=== PATIENT | male | born 1995 | race Caucasian/White ===

== ENCOUNTER 2022-09-12 21:45 | Emergency (ER) | payer OTHER, SELFPAY ==
[2022-09-12 21:46] VITALS: BP 118/89; PULSE 61; RESP 16; TEMP 36.7; O2SAT 96; BMI 27.2
--- NOTE | 2022-09-12 22:06 | EDS_ITS ---
HPI HPI - URI History of Present Illness Chief Complaint: Cough Informant: patient Onset/Context/Timing Onset: Days Context: Gradual Onset Timing: Continuous Current Severity: Mild Associated Symptoms Associated Symptoms: Positive for Nasal Congestion and Nonproductive cough Narrative Narrative: 27-year-old male 5-day history of URI symptoms. Nonproductive cough. No hemoptysis. No chest pain. Denies nausea vomiting diarrhea. No fever or chills. Presently worse today. With shortness of breath and wheezing. Patient is a non-smoker. Denies any leg pain or swelling. Prior similar symptoms: Yes Recent Illness/Hospitalization: No ROS ROS ED ROS Narrative Cough. Shortness of breath. Wheezing. Review of Systems ROS Unobtainable: Denies due to encephalopathy Constitutional Constitutional ED: Denies chills or fever(s) Eyes Eyes: Denies blurry vision ENT ENT ED: Denies ear pain Cardiovascular Cardiovascular: Denies chest pain, orthopnea or paroxysmal nocturnal dyspnea Respiratory/Chest Respiratory/Chest: Reports cough and dyspnea; Denies dyspnea on exertion, orthopnea, paroxysmal nocturnal dyspnea or sputum Gastrointestinal Gastrointestinal: Denies abdominal pain, constipation, diarrhea, melena, nausea or vomiting Genitourinary Genitourinary ED: Denies dysuria or hematuria Musculoskeletal Musculoskeletal: Denies arthralgias Integumentary Denies abscess Neurologic Neurologic: Denies headache(s) Psychiatric Psychiatric: Denies anxiety Endocrine Endocrinology: Denies cold intolerance Hematologic/Lymphatic Hematologic/Lymphatic: Denies easy bleeding Allergic/Immunologic Allergic/Immunologic ED: Denies mouth swelling or tongue swelling PFSH PFSH Medical History Cough no medical history Home Medications prednisone 20 mg tablet 40 mg PO DAILY 7 days #14 tabs 09/12/22 [Rx Last Taken Unknown] Allergy/AdvReac Type Severity Reaction Status Date / Time No Known Allergies Allergy Verified 09/12/22 21:47 Surgical History no surgical history no surgical history Social History Smoking Status: Unknown if ever smoked EXAM Physical Exam Narrative Exam Narrative: 18-year-old male vital signs stable afebrile. Pulse ox 96% on room air no hypoxia. No distress. H EENT exam unremarkable. Except he does have mild laryngitis. Nasal congestion. Posterior pharynx unremarkable. Neck nontender. No lymphadenopathy. No meningismus. Lungs dry cough. Diffuse scattered expiratory wheezes. No rales or rhonchi. Equal symmetrical. Abdomen soft nontender. Moving all 4 extremities. Calves are nontender no edema no cords. Neurologically is awake alert with no focal motor deficits. Const Vital Signs: 09/12/22 21:46 09/12/22 22:03 09/12/22 22:26 Temperature 98.1 F Temperature Source Temporal Pulse Rate 61 68 Respiratory Rate 16 16 Respiratory Effort Normal Non-Labored Respiratory Depth Normal Respiratory Pattern Normal Blood Pressure 118/89 H Blood Pressure Mean 98 Pulse Ox 96 Oxygen Delivery Method Room Air Positive well nourished and well developed; Negative for obese, cachectic or contractures General Appearance ED: well developed and NAD; Negative for cachectic, contractures, cyanotic, diaphoretic or pallor Nutritional Appearance: Negative for cachectic or obese HEENT Reports moist mucous membranes; Denies dry mucous membranes normocephalic and atraumatic; Negative for scalp tenderness Face and Sinus: Negative for sinus tenderness Mouth ED: No dry mucous membranes Mouth: No dry mucous membranes Teeth and Gingiva: Negative for caries Throat: posterior oropharynx normal; Negative for tonsils abnormal or posterior oropharynx abnormal Eyes PERRL and EOMs intact bilaterally General Eye ED: Negative for pale conjunctiva or scleral icterus Neck no lymphadenopathy, supple, no meningeal signs and no JVD General: Negative for anterior neck swelling or lymphadenopathy Resp normal respiratory effort and No clear to auscultation bilaterally Effort and Inspection: Negative for retractions Auscultation: wheezes; Negative for rales or rhonchi Cardio S1 normal heart sound, S2 normal heart sound and no murmurs Rate: regular rate Rhythm: regular rhythm GI non-tender, non-distended and no masses Inspection: Negative for abdominal distention Auscultation: normoactive bowel sounds Palpation: soft; Negative for tender or guarding Back/Spine no CVA tenderness and normal ROM General Back: Negative for CVA tenderness Cervical Spine: Negative for cervical spine tenderness Thoracic Spine / Upper Back: Negative for thoracic spinal tenderness Lumbar Spine / Lower Back: Negative for lumbar spinal tenderness Sacrum: Negative for tenderness Extremity normal to inspection and full ROM General Extremety ED: Negative for cyanosis or tenderness General Extremity: Negative for cyanosis Neuro oriented x3, CN's II-XII intact bilaterally and no sensory deficits noted Sensorium / Orientation: alert, oriented to person, oriented to place and oriented to time; Negative for orientation impaired, lethargic or stuporous Motor Exam: strength 5/5 throughout Psych mental status grossly normal Appearance: Negative for other Attitude: No agitated Mood & Affect: Negative for depressed, anxious or tearful Skin General Skin Exam: Negative for jaundice or pallor Lesions: no lesions Rashes: no rashes Trauma: Negative for abrasion or laceration MDM MDM MDM Narrative Medical decision making narrative: 27-year-old male with viral syndrome. Most likely influenza, COVID or any other respiratory virus. Chest x-ray will be obtained to rule out pneumonia even though clinically I do not think he has pneumonia. He will be given a DuoNeb aerosol for his wheezing and a dose of prednisone 60 mg. Patient is self-pay and wanted to be cost conscious. So he had to cancel his chest x-ray and his COVID and influenza test which I am fine with. Reviewed and patient is doing well at 10:44 PM. Wheezing is resolved. Breathing is improved after his aerosol and prednisone. He will be discharged home with a prescription of prednisone 40 mg a day for the next 7 days as needed. Follow-up if not improving. Return if worse. Lab Data Lab results narrative: Patient did not want any lab work or swabs. Radiography Diagnostic Testing: Patient deferred chest x-ray. Discharge Plan Triage Chief Complaint: Cough ED Provider: Rene James Dx/Rx/DC Orders Clinical Impression: Viral URI Instructions: ED URI, Viral W/ Wheezing (Adult) Prescriptions: New prednisone 20 mg tablet 40 mg PO DAILY 7 Days Qty: 14 0RF Primary Care Provider: Care Physician,No Primary Referrals: Kareem Beauchamp MD [Med Staff - Building And Grounds Supervisor] - 1 Week if not improving Care Physician,No Primary [Primary Care Provider] - Activity Restrictions/Additional Instructions: Plenty of fluids and rest. Tylenol and Motrin as needed if you have a fever. Daily prednisone to help you with the inflammation in your lungs and the wheezing. If you stop wheezing or feeling better you may stop it early. 40 mg once a day till gone or improved. Follow-up with your doctor if not improving. Disposition Disposition: Home, Self Care
[2022-09-12] MEDS: Ipratropium/Albuterol Sulfate 3 ML AMPUL.NEB INHALATION (22:12)
[2022-09-12 22:26] VITALS: PULSE 68; RESP 16
[2022-09-12] MEDS: predniSONE 20 MG Tablet 60 MG PO (22:31)
== END 2022-09-12 22:50 | disposition home or self-care (01) ==
PROVIDERS: Emergency Provider Emergency Medicine; Visit Provider Emergency Medicine
DX: J06.9 Acute upper respiratory infection, unspecified (principal); B34.9 Viral infection, unspecified; R06.02 Shortness of breath
CPT/HCPCS: 94640; 99283

== ENCOUNTER 2023-05-08 19:05 | Inpatient (IN) | payer BC, SELFPAY ==
[2023-05-08 19:07] VITALS: BP 122/94; PULSE 113; RESP 18; TEMP 36.8; O2SAT 98
[2023-05-08 19:12] VITALS: BP 122/94; PULSE 113; RESP 18; TEMP 36.8; O2SAT 98
--- NOTE | 2023-05-08 19:32 | RAD_ITS ---
INDICATION: pain, numb RLE EXAMINATION/TECHNIQUE: X-RAY - XR Spine Lumbar 2 or 3 Views COMPARISON: None. FINDINGS: This patient has 5 non rib-bearing lumbar-type vertebral bodies. Lumbar spine intervertebral disc height overall appears to be relatively preserved. There is some slight lower lumbar spine facet arthropathy at L5/S1 and L4/L5. Minimal anterior osteophyte formation at L5. Slight lower thoracic spine and spondylosis at T11 and T12. Slight loss of vertebral body height is present at T12 although this could be chronic. Nonspecific bowel gas pattern. RAD/Lumbar Spine 2 or 3 Views IMPRESSION: No evidence of acute lumbar spinal fracture or spondylolisthesis. Loss of height at T12 may be chronic. Electronically Signed: Elvis Frazier MD at 20:25 EDT ,
[2023-05-08 19:48] VITALS: BMI 26.9
[2023-05-08 20:02] LABS: Absolute Lymphocyte Count 0.93 X10^3/uL (0.83-4.51); Basophil# 0.03 X10^3/uL; Basophil% 0.2 % (0-1); Hematocrit 43.6 % (40-54); Hemoglobin 15.1 g/dL (13.0-16.5); Lymphocyte # 0.93 X10^3/ul (0.83-4.51); Mean Corp Hgb Conc 34.6 g/dL (32-36); Mean Corpuscular Hgb 35.3 pg (27.0-32.0); Mean Corpuscular Volume 101.9 fL (80-94); Mean Platelet Vol. 9.8 fl (6.2-12.0); Monocyte# 0.41 X10^3/uL; Monocyte% 2.7 % (0-10); NRBC Flagged by Analyzer 0 % (0-5); Neutrophil % 90.6 % (47-70); Platelet Count 200 K/mm3 (150-450); RBC Distribution Width CV 12.9 % (11.6-14.6); RBC Distribution Width SD 48.5 fl (35.1-43.9); Red Blood Count 4.28 M/mm3 (4.6-6.2); White Blood Count 15.4 K/mm3 (4.4-11.0)
--- NOTE | 2023-05-08 20:10 | RAD_ITS ---
INDICATION: pain EXAMINATION/TECHNIQUE: X-RAY - RIGHT XR Hip Unilateral with Pelvis when performed; 2-3 Views 3 VIEWS COMPARISON: None. FINDINGS: SI joints are grossly intact. Right hip joint space is intact. Tiny corticated density at the right superolateral acetabulum could be degenerative or reflect old trauma. No focal aggressive osseous lesion is appreciated. Pubic symphysis is normal. Left hip normal. Slight lower lumbar spine facet arthropathy. RAD/HIP, UNI W/ Pelvis 2-3 Views IMPRESSION: No acute osseous pathology. Electronically Signed: Elvis Frazier MD at 20:27 EDT ,
[2023-05-08 20:12] LABS: Erythrocyte Sedimentation Rate < 1 mm/hr (0-20)
[2023-05-08 21:26] LABS: Lactic Acid 3.2 mmol/L (0.4-1.9)
[2023-05-08 21:37] VITALS: BP 127/99; PULSE 63; RESP 16; O2SAT 96
[2023-05-08] MEDS: 0.9% Normal Saline (1000mL) 1,000 ML 999 ML IV (21:44)
[2023-05-08 22:04] LABS: Anion Gap 10 (5-15); BUN 34 mg/dL (7-18); BUN/Creat Ratio 16.7 RATIO (10-20); CPK Total, Creatine Kinase 22555 U/L (39-308); Calcium,Total 8.1 mg/dL (8.5-10.1); Chloride 107 mmol/L (98-107); Creatinine, Serum 2.04 mg/dL (0.70-1.30); EST Glomerular Filtration Rate 41 mL/min (>60); Est Glom Filt Rate - Afr Amer 50 mL/min (>60); Estimated Creatinine Clearance 54.67 ml/min; Glucose 135 mg/dL (74-106); Potassium 4.2 mmol/L (3.5-5.1); Sodium Level 138 mmol/L (136-145)
--- NOTE | 2023-05-08 22:09 | EDS_ITS ---
HPI History of Present Illness Chief Complaint: Numb/Ting Informant: patient Onset/Context/Timing Onset: Today Location: BLEs Current Severity: Severe Maximum Severity: Severe Associated Symptoms Associated Symptoms: pain and paresthesias Narrative Narrative: Patient has a history of opioid abuse and went through detox in early March. He said he is not using. He woke up today around 10 AM with bilateral leg pain as well as paresthesias in the right leg. He says the paresthesias run down his entire right leg. His pain is mainly in his bilateral thighs and also his left lower leg. He never had anything like this before. He is denying any back pain, incontinence, retention, saddle anesthesias, recent trauma, history of spinal tumors, fevers, blood thinners, or any other symptoms. He does report playing golf and doing yoga recently but denies any other repetitive or exertional activities. Denies any history of DVT or PE. Denies any history of radiculopathy or nerve problems. Denies any history of aortic or vascular disease. Prior similar symptoms: No Recent Illness/Hospitalization: No [facility] Medical History Cough Home Medications prednisone 20 mg tablet 40 mg (2 x 20 mg) PO DAILY 7 days #14 tabs 09/12/22 [Rx Last Taken Unknown] clonazepam 1 mg tablet 1 mg PO PRN sleep 05/08/23 [History Last Taken Unknown] naltrexone .ROUTE 05/08/23 [History Last Taken Unknown] Allergy/AdvReac Type Severity Reaction Status Date / Time No Known Allergies Allergy Verified 05/08/23 19:13 Social History Smoking Status: Current some day smoker tobacco type: cigarettes ROS ROS ED Constitutional Constitutional ED: Denies chills or fever(s) Eyes Eyes: Denies blurry vision ENT ENT ED: Denies ear pain Cardiovascular Cardiovascular: Denies chest pain Respiratory/Chest Respiratory/Chest: Denies dyspnea Gastrointestinal Gastrointestinal: Denies abdominal pain, diarrhea, nausea or vomiting Genitourinary Genitourinary ED: Denies dysuria or hematuria Musculoskeletal Musculoskeletal: Reports myalgias; Denies arthralgias, back pain or neck pain Integumentary Denies abscess or Abrasions Neurologic Neurologic: Reports paresthesias; Denies headache(s) or weakness Psychiatric Psychiatric: Denies anxiety Endocrine Endocrinology: Denies cold intolerance Allergic/Immunologic Allergic/Immunologic ED: Denies mouth swelling EXAM Physical Exam Const Vital Signs: 05/08/23 19:07 05/08/23 19:12 05/08/23 21:37 Temperature 98.2 F 98.2 F Temperature Source Temporal Temporal Pulse Rate 113 H 113 H 63 Respiratory Rate 18 18 16 Blood Pressure 122/94 H 122/94 H 127/99 H Blood Pressure Mean 103 103 108 Pulse Ox 98 98 96 Oxygen Delivery Method Room Air Room Air Room Air Positive well nourished and well developed General Appearance ED: well developed HEENT Reports moist mucous membranes Eyes EOMs intact bilaterally Resp normal respiratory effort Cardio regular rate and regular rhythm GI normal to inspection, nondistended, normoactive bowel sounds, non-tender and non-distended Back/Spine no CVA tenderness Thoracic Spine / Upper Back: Negative for paraspinal muscle tenderness Lumbar Spine / Lower Back: Negative for lumbar spinal tenderness Extremity normal to inspection Extremity Narrative: Strong equal DP pulses. Normal capillary refill. Tenderness to palpation to the bilateral anterior legs and the left lower leg General Extremety ED: Yes tenderness; Negative for edema General Extremity: Negative for edema Neuro oriented x3 Neuro Narrative: Symmetric strength. Paresthesias to the right lower extremity Sensorium / Orientation: alert Motor Exam: strength 5/5 throughout Psych mental status grossly normal Mood & Affect: Negative for depressed, anxious or tearful Skin no rashes or lesions noted, no wounds and skin turgor normal MDM MDM MDM Narrative Medical decision making narrative: Patient had x-rays of his lumbar spine and pelvis and right hip, where he seemed to have most of his pain (R thigh). These were reviewed by the radiologist and myself and he had no acute abnormalities. White count was 15. He was afebrile and had no other infectious symptoms. His CPK was 22,000 and he was treated with fluids. Lactate 3.2. Creatinine 2.0. ESR elevated. Still awaiting some of his blood work to come back. I added on a tox and alcohol, but results are pending at this time. Patient did not have the classic history or findings of cauda equina, and so I did not feel that he needed an emergent MRI. Abscess or bleed would be unlikely based on his exam and history, but they were considered. I am more concerned that he may have used again and had some narcosis and developed rhabdo. He does not appear to have compartment syndrome on exam. I spoke with the hospitalist and we will check CTA's. I did notify him of the elevated creatinine, and he will proceed with CTA's and the hospitalist will manage. If he develops back pain or objective neurologic symptoms, he may need further spinal imaging. Patient will be admitted to the hospital for further care. Impression #1 rhabdomyolysis Impression #2 leukocytosis Impression #3 lactic acidosis Impression #4 acute kidney injury Impression #5 history of opioid abuse Lab Data Labs: Laboratory Results - last 24 hr 05/08/23 05/08/23 05/08/23 19:56 20:33 21:45 WBC 15.4 H RBC 4.28 L Hgb 15.1 Hct 43.6 MCV 101.9 H MCH 35.3 H MCHC 34.6 RDW Std Deviation 48.5 H RDW Coeff of Ernesto 12.9 Plt Count 200 MPV 9.8 Immature Gran % (Auto) 0.500 Neut % (Auto) 90.6 H Lymph % (Auto) 6.0 L [place] % (Auto) 2.7 Eos % (Auto) 0.0 Baso % (Auto) 0.2 Absolute Neuts (auto) 14.0 H Absolute Lymphs (auto) 0.93 Nucleated RBC % 0 ESR < 1 Sodium 138 Potassium 4.2 Chloride 107 Carbon Dioxide 21.0 Anion Gap 10 BUN 34 H Creatinine 2.04 H Estim Creat Clear Calc 54.67 Est GFR (MDRD) Af Amer 50 L Est GFR (MDRD) Non-Af 41 L BUN/Creatinine Ratio 16.7 Glucose 135 H Lactic Acid 3.2 H* Calcium 8.1 L Total Creatine Kinase 42222 H C-React Prot Ext Range 32.90 H Ur Drug Screen Comment Radiography Diagnostic Testing: Clinical Impression(s) from Imaging Studies Lumbar Spine X-Ray 05/08/23 19:32 IMPRESSION: No evidence of acute lumbar spinal fracture or spondylolisthesis. Loss of height at T12 may be chronic. Electronically Signed: Elvis Frazier MD at 20:25 EDT , Hip/Pelvis X-Ray 05/08/23 20:10 IMPRESSION: No acute osseous pathology. Electronically Signed: Elvis Frazier MD at 20:27 EDT , Discharge Plan Triage Chief Complaint: Numb/Ting ED Provider: Pedro Engel Dx/Rx/DC Orders Prescriptions: No Action prednisone 20 mg tablet 40 mg PO DAILY 7 Days Qty: 14 0RF clonazepam 1 mg tablet 1 mg PO PRN (Reason: sleep) Patient Comments: TAKE 1 TABLET BY MOUTH TWICE DAILY NEEDED naltrexone .ROUTE Primary Care Provider: Care Physician,No Primary Referrals: Care Physician,No Primary [Primary Care Provider] -
--- NOTE | 2023-05-08 22:13 | HP.PCM.HOS_ITS ---
HPI - General General Date of Admission: 05/08/23 Date of Service: 05/08/23 Chief Complaint: Bilateral leg numbness HPI Narrative BREEZY RIVERA, is a 28 M with a significant history of opioid abuse on Vivitrol shots and naltrexone who presents to department with bilateral numbness of his lower extremities; right worse than left. His symptoms started next day after golfing. Patient fell multiple times on the day of presentation. He was too weak to open his cupboard and take his naltrexone pills. His mother brought him to the hospital. [facility] Medical History Alcohol abuse Cough Substance abuse Home Medications clonazepam 1 mg tablet (Klonopin) 1 mg PO .prn qhs sleep 05/08/23 [History Last Taken 05/06/23 21:00] naltrexone .Route no taking 05/08/23 [History Last Taken Unknown] naltrexone 50 mg tablet 50 mg PO Q24H opiate karrie 05/08/23 [History Last Taken 05/07/23 07:00 50 mg] quetiapine 50 mg tablet (Seroquel) 50 mg PO .PRN qhs sleep 05/08/23 [History Last Taken 05/04/23 21:00] Allergy/AdvReac Type Severity Reaction Status Date / Time No Known Allergies Allergy Verified 05/08/23 19:13 Family History Other Cancer Surgical History H/O ankle fusion Social History (Updated 05/09/23 @ 03:[address] Moses Perez MD) Smoking Status: Never smoker substance use type: marijuana ROS ROS Narrative Pertinent positives and pertinent negatives as noted in HPI. All other systems were reviewed and are negative Vital Signs Vital Signs Vital Signs: 05/08/23 19:07 05/08/23 19:12 05/08/23 21:37 Temperature 98.2 F 98.2 F Temperature Source Temporal Temporal Pulse Rate 113 H 113 H 63 Respiratory Rate 18 18 16 Blood Pressure 122/94 H 122/94 H 127/99 H Blood Pressure Mean 103 103 108 Pulse Ox 98 98 96 Oxygen Delivery Method Room Air Room Air Room Air Weight Weight: 85 kg Body Mass Index (BMI) 26.9 Physical Exam Narrative Physical exam: General: Well-nourished, well-developed. Head: Normocephalic, atraumatic, no tenderness Eyes: Vision is grossly intact. EOMI ENT, no trauma, moist mucous membranes, no rhinorrhea Neck: Nontender, No thyromegaly. CVS: Regular rate and rhythm. S1-S2 present. No murmur, gallop or rub. Respiratory : clear to auscultation bilaterally, chest wall nontender Abdomen: Soft, nontender, nondistended, normal bowel sounds, no masses : Deferred Back: Nontender, no CVA tenderness Extremities: Nontender full range of motion, no trauma Skin: Normal color, no trauma, abrasions Neuro: Alert, oriented, cranial nerves II through XII grossly intact. Able to raise his left leg. Unable to raise right leg. Reports decreased sensation of right leg compared to left leg. Psychiatry: Normal mood. Normal affect. Not depressed. Not anxious. Results Lab / Micro Data 05/08/23 19:56 05/08/23 19:56 Labs: Laboratory Results - last 24 hr 05/08/23 19:56: WBC 15.4 H, RBC 4.28 L, Hgb 15.1, Hct 43.6, MCV 101.9 H, MCH 35.3 H, MCHC 34.6, RDW Std Deviation 48.5 H, RDW Coeff of Ernesto 12.9, Plt Count 200, MPV 9.8, Immature Gran % (Auto) 0.500, Neut % (Auto) 90.6 H, Lymph % (Auto) 6.0 L, [place] % (Auto) 2.7, Eos % (Auto) 0.0, Baso % (Auto) 0.2, Absolute Neuts (auto) 14.0 H, Absolute Lymphs (auto) 0.93, Nucleated RBC % 0, ESR < 1, Sodium 138, Potassium 4.2, Chloride 107, Carbon Dioxide 21.0, Anion Gap 10, BUN 34 H, Creatinine 2.04 H, Estim Creat Clear Calc 54.67, Est GFR (MDRD) Af Amer 50 L, Est GFR (MDRD) Non-Af 41 L, BUN/Creatinine Ratio 16.7, Glucose 135 H, Calcium 8.1 L, Total Creatine Kinase 33582 H, C-React Prot Ext Range 32.90 H 05/08/23 20:33: Lactic Acid 3.2 H* 05/08/23 21:45: Ur Drug Screen Comment Radiology Impression Lumbar Spine X-Ray 05/08/23 19:32 IMPRESSION: No evidence of acute lumbar spinal fracture or spondylolisthesis. Loss of height at T12 may be chronic. Electronically Signed: Elvis Frazier MD at 20:25 EDT Reading Location ID and State: [address] [place] [address] Tel , Service support , Hip/Pelvis X-Ray 05/08/23 20:10 IMPRESSION: No acute osseous pathology. Electronically Signed: Elvis Frazier MD at 20:27 EDT , Assessment & Plan Assessment/Plan (1) Rhabdomyolysis: QUALIFIERS: Rhabdomyolysis type: non-traumatic Qualified Code(s): M62.82 - Rhabdomyolysis (2) DILSHAD (acute kidney injury): PLAN: Plan Acute rhabdomyolysis/bilateral leg pain and weakness CPK of 22,555. CPK level of 32.9. IV hydration ordered. Trend CPK. PT and OT to work with patient Ultram as needed for pain. While on ultram will not order ultrasound. Check CMP Leukocytosis White count of 15,400. No focus of infection at this time. Trend CBC Also noted to have elevated CRP. Lactic acidosis Lactic acid of 3.2 with no focus of infection known. Trend. DILSHAD Creatinine on presentation was 2.04. This is the only creatinine on file. Gentle IV hydration. Trend CMP. Avoid nephrotoxins. History of opioid abuse Reports last use about 45 days ago. Urine toxicology positive for benzos. Of note patient is prescribed clonazepam. DVT prophylaxis Subcutaneous Lovenox ordered. Time spent in the patient's overall evaluation,decision-making process, review of diagnostic data, adjustment of management, discussion with other providers, nursing nursing and ancillary staff involved in patient's care documentation, 69 minutes. Charges/Coding Visit Charges Inpatient E&M: 09617 Init Hosp L3
[2023-05-08 22:18] LABS: Alcohol, Blood (Medical)-Serum < 3.0 mg/dL
[2023-05-08 22:29] LABS: Amphetamine Urine VISTA NEGATIVE (<1000 ng/mL); Barbiturate Urine VISTA NEGATIVE (< 200 ng/mL); Benzodiazepine Urine VISTA POSITIVE (< 200 ng/mL); Cocaine Urine VISTA NEGATIVE (< 300 ng/mL); Ecstacy Urine VISTA NEGATIVE (< 500 ng/mL); Methadone Urine VISTA NEGATIVE (< 300 ng/mL); PCP Urine VISTA NEGATIVE (< 25 ng/mL); THC Urine VISTA NEGATIVE (< 50 ng/mL); Vista UDS pH Range 5
--- NOTE | 2023-05-08 22:40 | CT_ITS ---
CT angiogram of the abdominal aorta with bilateral lower extremity runoff with 3-dimensional reconstructions, with MIP reconstructions Clinical history: pain and paresthesias Technique: Multiple helical CT images were obtained from the domes the diaphragms to level of feet after intravenous administration of iodinated contrast with transaxial, coronal and sagittal multiplanar reconstructions. On a separate workstation, 3-dimensional reconstructions were obtained of the arterial vasculature using volume rendering technique and maximal intensity projection technique as per departmental protocol. This CT exam has been performed using low dose vendor recommended protocols to limit radiation exposure to As Low As Reasonably Achievable. Contrast 100 cc Isovue-370 RADIATION DOSAGE (If Supplied By Facility): CTDIvol = ( 8.91 ) mGy, DLP = ( 1201.91 ) mGycm COMPARISON: None FINDINGS: ABDOMEN / PELVIS: Airspace opacity seen at the left lower lobe and lingula. The right base is more relatively clear. The visualized portions of the liver are unremarkable. The visualized portions of the spleen and pancreas appear to be within normal limits. The gallbladder is unremarkable. The kidneys are unremarkable. The visualized bowel is unremarkable. Mild distention of the urinary bladder. Nonspecific. Slight lumbar spine degenerative change without obvious lumbar spine canal stenosis. Slight loss of height at T12 appears chronic. VASCULAR STRUCTURES: There appears to be good opacification and patency of the visualized abdominal aorta. There appears to be good opacification and patency of the celiac trunk, superior mesenteric artery. There appears to be good opacification and patency noted of the RIGHT and LEFT renal arteries. Multiple left renal arteries. There appears to be good opacification and patency noted of the inferior mesenteric artery. ARTERIAL STRUCTURES OF THE RIGHT LOWER EXTREMITY: Common iliac artery: Appears patent with good opacification. External iliac artery: Appears patent with good opacification. Internal iliac arteries: Appears patent with good opacification. Common femoral artery: Appears patent with good opacification. Superficial femoral arteries: Appear patent with good opacification. Popliteal artery: Appears patent with good opacification. Anterior tibial artery: Appears patent with good opacification. Posterior tibial artery: Appears patent with good opacification. Peroneal artery: Appears patent with opacification. ARTERIAL STRUCTURES OF THE LEFT LOWER EXTREMITY: Common iliac artery: Appears patent with good opacification. External iliac artery: Appears patent with good opacification. Internal iliac arteries: Appears patent with good opacification. Common femoral artery: Appears patent with good opacification. Superficial femoral arteries: Appear patent with good opacification. Popliteal artery: Appears patent with good opacification. Anterior tibial artery: Appears patent with good opacification. Posterior tibial artery: Appears patent with good opacification. Peroneal artery: Appears patent with opacification. CT/CTA Abd w/Runoff W/WO Contrast IMPRESSION: Lingular and left lower lobe airspace disease which is presumably infectious or inflammatory. Follow to resolution after appropriate treatment for pneumonia. No significant vascular abnormality. Electronically Signed: Elvis Frazier MD at 23:03 EDT ,
[2023-05-08 22:41] VITALS: BP 116/72; PULSE 92; RESP 20; TEMP 36.4; O2SAT 94
[2023-05-08 23:33] VITALS: BP 128/70; PULSE 92; RESP 18; TEMP 36.6; O2SAT 97
[2023-05-08 23:42] VITALS: BMI 26.9
[2023-05-09] MEDS: 0.9% Normal Saline (1000mL) 1,000 ML 150 ML IV ×4 (00:21→18:17)
[2023-05-09] MEDS: 0.9% Saline Lock 10 ML Syringe IV (00:21)
[2023-05-09 00:35] LABS: Reflex Lactate? Y
[2023-05-09 01:22] LABS: Lactic Acid 1.6 mmol/L (0.4-1.9)
[2023-05-09 05:13] VITALS: BP 110/76; PULSE 91; RESP 16; TEMP 36.6; O2SAT 96
--- NOTE | 2023-05-09 07:00 | PCM.PN.HOSP ---
Reason for Visit Reason for Visit: Bilateral leg numbness Subjective Subjective Patient is a 28-year-old white male who presented to the emergency department [facility] on 05/08/2023 complaining of bilateral leg pain and numbness he noted upon waking this morning. He indicated he woke at about 10 AM on the morning of admission with bilateral leg pain and some paresthesias in his right leg. He reported the paresthesias run down his entire right leg. The pain was noted in mainly his bilateral thighs and left lower leg. He never had anything like this previously. He denied back pain, incontinence, or urinary retention, any saddle anesthesia or bowel dysfunction. He denied any recent trauma, fever or chills. He is not on anticoagulation at baseline. He does have a history of opiate abuse and went through detox in early March and has been on Vivitrol since that point in time and doing well with regards to his sobriety. He evidently had several falls on the days of presentation and he had golf the day previously. With his symptoms his mother brought him to the hospital for further evaluation. Vital signs on presentation demonstrated temperature of 98.2, heart rate 113, blood pressure was 122/94, respiratory to 18 oxygen saturations were 98% on room air. CBC on presentation showed a leukocytosis with a white count of 15.4 and a left shift with a 90.6% neutrophilia. His chemistry panel revealed normal electrolytes however an elevated BUN and creatinine with a BUN of 34 and a creatinine of 2.04 (baseline serum creatinine is unknown as we have no previous data). Lactic acid initial lactate was 3.2 but normalized to 1.6. His CK was 22,555. CRP was mildly elevated at 32.9 and his ESR was less than 1. Toxicology screen was positive only for benzodiazepine and he is on clonazepam at baseline. Imaging of the lumbar spine revealed no acute process and mild loss of height at T12 with may be chronic. Hip and pelvis x-ray was unremarkable. CTA of the abdomen and pelvis showed lingular and left lower lobe airspace disease and no significant vascular abnormality. Patient has no respiratory symptoms. Patient was admitted to the medical floor and placed on aggressive hydration. His Vivitrol has been held as this could be the precipitating factor. Patient had his last dose of Vivitrol on March 25 and has been on oral naltrexone since that point in time. Patient states he was in his usual state of health on Wednesday evening and went to bed and then was not able to get up off the floor after he fell trying to get out of bed due to significant right leg weakness. He complains of paresthesias/numbness in the right leg as well as. Muscle weakness is predominantly in the quadriceps and hip flexors. Paresthesias are anterior thigh into anterior distal lower extremity. Which would be mid lumbar dermatomal pattern. Sensation on the posterior aspect of the leg is intact. He has absent reflexes at the right knee and left knee reflexes are normal. Patient does workout and does CrossFit and played 27 holes of golf on Wednesday. On his left lower extremity he complains of some tenderness along the peroneus longus region of the right leg which she is experienced before when he plays consider amount of golf. He states that the little bit worse than usual at this time. Patient states typically he is well-hydrated however he did lay on the floor for about 6 hours and was unable to get up yesterday so this may have contributed to his dehydration and CK elevation. Patient states he has pain at his hip flexors on the right side anteriorly Objective Data Objective Data Vital Signs: Vital Signs Temp Pulse Resp BP Pulse Ox O2 Del Method 97.9 F 91 16 110/76 96 Room Air 05/09/23 05:13 05/09/23 05:13 05/09/23 05:13 05/09/23 05:13 05/09/23 05:13 05/09/23 05:23 Oxygen Delivery Method Room Air Weight: 85.2 kg Body Mass Index (BMI) 26.9 Intake & Output: Intake and Output for Last 24 Hours 05/07/23 05/08/23 05/09/23 23:59 23:59 23:59 Intake Total 2875 / 2875 Output Total 2700 / 2700 Balance 175 / 175 Lab / Micro Data 05/09/23 06:00 05/09/23 06:00 Labs: Laboratory Results - last 24 hr 05/08/23 19:56: WBC 15.4 H, RBC 4.28 L, Hgb 15.1, Hct 43.6, MCV 101.9 H, MCH 35.3 H, MCHC 34.6, RDW Std Deviation 48.5 H, RDW Coeff of Ernesto 12.9, Plt Count 200, MPV 9.8, Immature Gran % (Auto) 0.500, Neut % (Auto) 90.6 H, Lymph % (Auto) 6.0 L, Ellsworth % (Auto) 2.7, Eos % (Auto) 0.0, Baso % (Auto) 0.2, Absolute Neuts (auto) 14.0 H, Absolute Lymphs (auto) 0.93, Nucleated RBC % 0, ESR < 1, Sodium 138, Potassium 4.2, Chloride 107, Carbon Dioxide 21.0, Anion Gap 10, BUN 34 H, Creatinine 2.04 H, Estim Creat Clear Calc 54.67, Est GFR (MDRD) Af Amer 50 L, Est GFR (MDRD) Non-Af 41 L, BUN/Creatinine Ratio 16.7, Glucose 135 H, Calcium 8.1 L, Total Creatine Kinase 81723 H, C-React Prot Ext Range 32.90 H 05/08/23 20:33: Lactic Acid 3.2 H* 05/08/23 21:45: Urine Opiates Screen NEGATIVE, Urine Methadone Screen NEGATIVE, Ur Barbiturates Screen NEGATIVE, Ur Phencyclidine Scrn NEGATIVE, Ur Amphetamines Screen NEGATIVE, MDMA (Ecstasy) Screen NEGATIVE, U Benzodiazepines Scrn POSITIVE H, Urine Cocaine Screen NEGATIVE, U Cannabinoids Screen NEGATIVE, Ur Drug Screen Comment 05/08/23 21:50: Ethyl Alcohol < 3.0 05/09/23 00:50: Lactic Acid 1.6 Radiography Diagnostic Testing: Radiology Impression Lumbar Spine X-Ray 05/08/23 19:32 IMPRESSION: No evidence of acute lumbar spinal fracture or spondylolisthesis. Loss of height at T12 may be chronic. Electronically Signed: Elvis Frazier MD at 20:25 EDT , Hip/Pelvis X-Ray 05/08/23 20:10 IMPRESSION: No acute osseous pathology. Electronically Signed: Elvis Frazier MD at 20:27 EDT , Abdomen/Pelvis CTA 05/08/23 22:40 IMPRESSION: Lingular and left lower lobe airspace disease which is presumably infectious or inflammatory. Follow to resolution after appropriate treatment for pneumonia. No significant vascular abnormality. Electronically Signed: Elvis Frazier MD at 23:03 EDT Reading Location ID and State: [address] [place] [address] Tel , Service support , Physical Exam Const alert, oriented x3, no apparent distress, average body habitus, healthy appearing and well nourished Constitutional Narrative: Muscular, young, white male, sitting up in a chair at the bedside, mother at bedside, patient appears comfortable and nontoxic HEENT head/scalp atraumatic and moist oral mucous membranes HEENT Narrative: Mallampati 2, no thrush, dentition is good Head and Scalp: normocephalic Eyes PERRL, EOMs intact bilaterally and conjunctivae normal Eyes Narrative: No scleral icterus Neck no lymphadenopathy and supple Neck Narrative: Trachea, no thyroid enlargement Resp normal respiratory effort, no retractions, no use of accessory muscles and clear to auscultation bilaterally Auscultation: Negative for rales, rhonchi or wheezes Cardio regular rate, regular rhythm, S1 normal heart sound, S2 normal heart sound, no murmurs, no rub, no gallops and no clicks GI normal to inspection, nondistended, normoactive bowel sounds, soft to palpation and non-tender Extremity Extremity Narrative: Mild swelling along the lateral aspect of the left leg distally with tenderness in this region as well, no cyanosis or clubbing Skin Skin Narrative: No bruising or ecchymosis noted, skin is not tight around musculature Neuro oriented x3, CN's II-XII intact bilaterally, No moves all extremities, No no focal motor deficits and No no sensory deficits noted Neuro Narrative: 1+ muscle strength at quadriceps on right, hamstring muscular strength is 4 out of 5, unable to fully assess plantarflexion as patient is not able to stand and walk on his toes however he was able to toe raise and sitting and break testing with manual muscle testing was unremarkable, dorsiflexion was painful on the left but 5 out of 5 and 3+ out of 5 on the right, reflexes on the right were absent, reflexes on the left were 3+ and brisk, sensory deficits predominantly in the L3/L4/L5 dermatome on the right Sensorium / Orientation: awake, alert, oriented to person, oriented to place and oriented to time Speech: speech normal Motor Exam: Negative for strength 5/5 throughout Psych affect normal Psych Narrative: Very pleasant, interacts appropriately, mildly anxious which is appropriate based on current situation Assessment & Plan Assessment/Plan (1) DILSHAD (acute kidney injury): (2) Rhabdomyolysis: QUALIFIERS: Rhabdomyolysis type: non-traumatic Qualified Code(s): M62.82 - Rhabdomyolysis (3) Lactic acidosis: (4) Leukocytosis: (5) Transaminitis: (6) Right leg weakness: (7) Right leg paresthesias: PLAN: Plan Rhabdomyolysis -Suspect this may be related to his Vivitrol/naltrexone use -Would recommend discontinuing this at discharge [place] [address] [place] [address] [place] -renal function has normalized -Continue aggressive IV fluids for now to continue to help his kidneys clear CK -Repeat CK in a.m. and if it continues to trend down I do not feel there is any further reason to serial check them -No signs of compartment syndrome -Check aldolase -No need to alkalize the urine at this time since his renal function is improving with just IV fluids Right lower extremity weakness/paresthesias-numbness -The focal deficit does not go along with rhabdo nor does the presence of paresthesias -We will check stat MRI with and without contra of the lumbar spine -Patient currently with L3/L4/L5 myotomal and dermatomal deficiencies -L4 reflexes on right lower extremity are absent -Sed rate is completely unremarkable and C-reactive protein is elevated but only 32.9 Transaminitis -This to also could be related to his naltrexone/Vivitrol -Check acute hepatitis panel -Check HIV status -Check liver ultrasound -Trend labs off medication DILSHAD -Serum creatinine admission was 2 -Serum creatinine today is 1.18 -Baseline is unknown -Avoid nephrotoxins especially with ongoing CK elevations however they are trending down -Continue aggressive hydration -Reevaluate in a.m. Lactic acidosis -Resolved Leukocytosis -Suspect reactive -Patient with no constitutional signs of infection -MRI of lumbar spine with and without contrast pending due to neurological deficits as noted above History of opiate abuse -With liver enzyme elevations we will check hepatitis panel and HIV -Patient is adamant that he is not currently using -Has been on Vivitrol and oral naltrexone -Highly suspicious that possibly his naltrexone/Vivitrol could have caused his transaminitis and CK elevation -Last dose of Vivitrol was on March 25, 2023 -Oral naltrexone started on April 25, 2023 Tobacco abuse -Nicotine patch if needed -Recommend cessation DVT prophylaxis -Lovenox subcu daily CODE STATUS -Full code Charges/Coding Visit Charges Inpatient E&M: 93574 Subs Hosp L2
[2023-05-09 07:17] LABS: Absolute Lymphocyte Count 1.03 X10^3/uL (0.83-4.51); Absolute Neutrophil Count 13.3 X10^3/uL (2.0-7.7); Basophil# 0.01 X10^3/uL; Basophil% 0.1 % (0-1); Hemoglobin 13.8 g/dL (13.0-16.5); Lymphocyte # 1.03 X10^3/ul (0.83-4.51); Mean Corp Hgb Conc 34.5 g/dL (32-36); Mean Corpuscular Hgb 34.9 pg (27.0-32.0); Mean Corpuscular Volume 101.3 fL (80-94); Mean Platelet Vol. 10.2 fl (6.2-12.0); Monocyte# 0.44 X10^3/uL; NRBC Flagged by Analyzer 0 % (0-5); Neutrophil # 13.27 X10^3/uL (2.7-7.7); Neutrophil % 89.5 % (47-70); Platelet Count 183 K/mm3 (150-450); RBC Distribution Width CV 12.8 % (11.6-14.6); RBC Distribution Width SD 48.4 fl (35.1-43.9); Red Blood Count 3.95 M/mm3 (4.6-6.2); White Blood Count 14.8 K/mm3 (4.4-11.0)
[2023-05-09 08:35] LABS: ALB/GLOB Ratio 0.9 RATIO (0.9-2.4); AST(SGOT) 970 U/L (15-37); Alanine Aminotransfer ALT/SGPT 1084 U/L (16-61); Albumin, Serum 2.9 g/dL (3.2-5.0); Alkaline Phosphatase 24 U/L (45-117); Anion Gap 8 (5-15); BUN 21 mg/dL (7-18); BUN/Creat Ratio 17.8 RATIO (10-20); CPK Total, Creatine Kinase 17434 U/L (39-308); Calcium,Total 7.6 mg/dL (8.5-10.1); Chloride 109 mmol/L (98-107); Creatinine, Serum 1.18 mg/dL (0.70-1.30); EST Glomerular Filtration Rate 77 mL/min (>60); Est Glom Filt Rate - Afr Amer 93 mL/min (>60); Estimated Creatinine Clearance 94.52 ml/min; Globulin 3.1 g/dL (2.2-4.2); Glucose 121 mg/dL (74-106); Potassium 3.7 mmol/L (3.5-5.1); Sodium Level 139 mmol/L (136-145)
--- NOTE | 2023-05-09 09:50 | MRI_ITS ---
We are attempting to reach an attending provider to discuss findings. An addendum with communication details will be sent when the communication is complete. STUDY: MRI LUMBAR SPINE WITH AND WITHOUT CONTRAST REASON FOR EXAM: Male, 28 years old. R LE parasthesias and Weakness bilat leg numbness R > L, hx opioid, alcohol abuse, vivitrol shots and naltreome TECHNIQUE: Standardized fat and water weighted pulse sequences were obtained in the sagittal and axial planes. IV 15ml clariscan was administered for the contrast portion of the examination. COMPARISON: X-ray of the lumbar spine and CT of abdomen and pelvis dated May 08, 2023 FINDINGS: Mild anterior disc space narrowing and endplate spurring at T11-T12. T12-L1: Normal endplates. Normal disc height, hydration and morphology. Normal bilateral facet joints. Normal central canal and bilateral lateral recesses. Normal bilateral intervertebral neural foramina. Normal lumbar lordosis. There is no substantial scoliosis. Normal conus medullaris that terminates at the L1 level. No marrow edema or fracture or compression deformity is present. L1-2: Normal endplates. Normal disc height, hydration and morphology. Normal bilateral facet joints. Normal central canal and bilateral lateral recesses. Normal bilateral intervertebral neural foramina. L2-3: Normal endplates. Normal disc height, hydration and morphology. Normal bilateral facet joints. Normal central canal and bilateral lateral recesses. Normal bilateral intervertebral neural foramina. L3-4: Normal endplates. Normal disc height, hydration and morphology. Normal bilateral facet joints. Normal central canal and bilateral lateral recesses. Normal bilateral intervertebral neural foramina. L4-5: Normal endplates. Normal disc height, hydration and morphology. Normal bilateral facet joints. Normal central canal and bilateral lateral recesses. Normal bilateral intervertebral neural foramina. L5-S1: Normal endplates. Normal disc height, hydration and morphology. Normal bilateral facet joints. Normal central canal and bilateral lateral recesses. Normal bilateral intervertebral neural foramina. Normal visualized sacral ala. Normal visualized paraspinous soft tissue structures. There is no evidence of osteomyelitis or discitis of the lumbar spine. No paraspinal muscle edema is present. However, there is mild the moderate intramuscular edema and swelling of the right iliacus muscle, lying on the inner surface of the right iliac wing. There is also mild edema in the muscle fibers of the origin of the right iliopsoas muscle. No definite intramuscular fluid collection is seen on the provided images. Muscle inflammation, infectious or inflammatory myositis, or muscle infarction can present in this manner. MRI/Spine Lumbar W/WO Contrast IMPRESSION: 1. There is mild the moderate intramuscular edema and swelling of the right iliacus muscle, lying on the inner surface of the right iliac wing. There is also mild edema in the muscle fibers of the origin of the right iliopsoas muscle. No definite intramuscular fluid collection is seen on the provided images. Muscle inflammation, infectious or inflammatory myositis, or muscle infarction can present in this manner. 2. Normal enhanced and unenhanced MR examination of the lumbar spine. Electronically Signed: Laureano Diaz MD at 13:06 EDT ,
[2023-05-09] MEDS: Enoxaparin 40 MG/0.4 ML Syringe SC (10:13)
[2023-05-09 10:26] VITALS: BP 125/67; PULSE 95; RESP 18; TEMP 37; O2SAT 100
[2023-05-09] MEDS: traMADol 50 MG Tablet PO ×2 (10:35→21:59)
--- NOTE | 2023-05-09 13:19 | MRI_ITS ---
EXAM: MR PELVIS WITHOUT AND WITH INTRAVENOUS CONTRAST CLINICAL INDICATION: Abn MRI LUMBAR spine TECHNIQUE: Multiplanar and multisequence MR images of the pelvis without and with intravenous contrast. CONTRAST: IV 15ML CLARISCAN COMPARISON: No relevant prior studies available. FINDINGS: APPENDIX: Not identified. INTRAPERITONEAL SPACE: Small amount of free pelvic fluid. Mild amount of edematous change also noted within the right lower quadrant. BLADDER: Normal. PROSTATE: Unremarkable as visualized. No hypertrophy. No discrete nodule or mass. SEMINAL VESICLES: Unremarkable as visualized. No nodule or cyst. BONES/JOINTS: Normal. SOFT TISSUES: Edematous changes of the right iliopsoas muscles noted with associated contrast enhancement. No focal mass identified. A small focus of edema and contrast enhancement also identified along the anterior portion of the right gluteus flor muscle. No pelvic wall hernia. LYMPH NODES: Normal. No enlarged lymph nodes. MRI/Pelvis W/WO Contrast IMPRESSION: 1. Inflammatory or posttraumatic changes of the right iliopsoas muscle and small portion of the right gluteus muscle. 2. No evidence of a mass. 3. Small amount of free pelvic fluid and mild edematous change of the right lower quadrant portion of the peritoneum of uncertain etiology. Electronically Signed: Frederic Molina MD at 12:17 EDT ,
--- NOTE | 2023-05-09 14:35 | PCM.HOSP.N ---
Hospitalist Note MRI of the lumbar spine reviewed and no acute pathology identified in the spine however, imaging did show mild to moderate intramuscular edema and swelling of the right iliac us muscle and edema at the origin of the iliopsoas muscle. I am wondering if the inflammation here is causing compression on the lumbar plexus which in return has caused some nerve impingement. Patient states he did do hip flexor heavy CrossFit workout this week and golfed 27 holes on Wednesday. Denies any regular preworkout shakes or any other supplements other than a multivitamin. Sensation is slightly better this afternoon and motor function seems to be slowly returning. We will consult neurology for input. Results and plan discussed with patient he and his mother voiced understanding.
[2023-05-09 15:52] VITALS: BP 134/85; PULSE 92; RESP 16; TEMP 37.2; O2SAT 98
[2023-05-09 18:01] LABS: International Normalized Ratio 1.2; Prothrombin Time (Protime)PT. 15.3 SECONDS (11.7-14.9)
[2023-05-09] MEDS: MethylPREDNISolone 1,000 MG in 0.9% Normal Saline (100mL Bag) 100 ML 100 MG IV (19:19)
[2023-05-09 20:46] VITALS: BP 137/97; PULSE 84; RESP 16; TEMP 36.6; O2SAT 99
[2023-05-09] MEDS: clonazePAM 1 MG Tablet PO (22:00)
[2023-05-10] MEDS: 0.9% Normal Saline (1000mL) 1,000 ML 150 ML IV ×3 (00:22→16:44)
[2023-05-10 03:51] VITALS: BP 127/81; PULSE 77; RESP 16; TEMP 36.4; O2SAT 98
[2023-05-10 05:14] LABS: Absolute Lymphocyte Count 0.54 X10^3/uL (0.83-4.51); Absolute Neutrophil Count 7.3 X10^3/uL (2.0-7.7); Hematocrit 42.9 % (40-54); Lymphocyte # 0.54 X10^3/ul (0.83-4.51); Lymphocyte % 6.8 % (19-41); Mean Corpuscular Hgb 35.8 pg (27.0-32.0); Mean Corpuscular Volume 102.4 fL (80-94); Mean Platelet Vol. 10.1 fl (6.2-12.0); Monocyte# 0.08 X10^3/uL; NRBC Flagged by Analyzer 0 % (0-5); Neutrophil # 7.29 X10^3/uL (2.7-7.7); Neutrophil % 91.6 % (47-70); POSITIVE DIFFERENTIAL YES; Platelet Count 166 K/mm3 (150-450); RBC Distribution Width CV 12.8 % (11.6-14.6); RBC Distribution Width SD 48.3 fl (35.1-43.9); Red Blood Count 4.19 M/mm3 (4.6-6.2)
[2023-05-10 05:16] LABS: Differential Indicated SCAN CRITERIA MET
[2023-05-10 05:39] LABS: Macrocytosis 1+
[2023-05-10 07:00] VITALS: O2SAT 95
[2023-05-10 07:03] LABS: ALB/GLOB Ratio 0.9 RATIO (0.9-2.4); AST(SGOT) 663 U/L (15-37); Alanine Aminotransfer ALT/SGPT 933 U/L (16-61); Albumin, Serum 3.2 g/dL (3.2-5.0); Alkaline Phosphatase 28 U/L (45-117); Anion Gap 5 (5-15); BUN 14 mg/dL (7-18); BUN/Creat Ratio 15.4 RATIO (10-20); CPK Total, Creatine Kinase 10739 U/L (39-308); Calcium,Total 7.9 mg/dL (8.5-10.1); Chloride 108 mmol/L (98-107); Creatinine, Serum 0.91 mg/dL (0.70-1.30); EST Glomerular Filtration Rate 104 mL/min (>60); Est Glom Filt Rate - Afr Amer 126 mL/min (>60); Estimated Creatinine Clearance 122.56 ml/min; Globulin 3.6 g/dL (2.2-4.2); Glucose 185 mg/dL (74-106); Magnesium 1.9 mg/dL (1.6-2.6); Potassium 4.1 mmol/L (3.5-5.1); Protein, Total 6.8 g/dL (6.4-8.2); Sodium Level 138 mmol/L (136-145); Thyroid Stim Hormone (TSH) 0.67 uIU/mL (0.358-3.74)
--- NOTE | 2023-05-10 07:30 | US_ITS ---
STUDY: ABDOMINAL ULTRASOUND - RIGHT UPPER QUADRANT REASON FOR VISIT: Male, 28 years old transaminitis TECHNIQUE: Ultrasound evaluation of the right upper quadrant was performed with real-time and static kelley-scale imaging. TECHNICAL QUALITY: Adequate. COMPARISON: None. FINDINGS: Liver: The liver measures 17.3 cm. There is normal echogenicity of the liver. The bile ducts are within normal limits. There is hepatic color flow. The direction of portal flow is hepatopetal. There is no demonstrated mass lesion. Gallbladder: Normal distended gallbladder. The gallbladder wall measures 1.3 mm. There is a negative sonographic Rausch''s sign. There is no pericholecystic fluid. There are no gallstones. Common Bile Duct (C.B.D.): The common bile duct measures 3.2 mm. Pancreas: Normal size of the head, body and tail of the pancreas. There is normal echogenicity of the pancreas. There is no demonstrated pancreatic mass or cyst. Right Kidney: Normal size of the right kidney. The right kidney measures 11.7 cm x 6.8 cm x 6 cm. Normal renal cortex. The right cortex measures 2.0 cm. There is no demonstrated renal mass or cyst. There is no right hydronephrosis. US/Abdomen Limited IMPRESSION: Borderline hepatomegaly. Electronically Signed: Bk Barker MD at 13:29 EDT ,
[2023-05-10 08:30] VITALS: BP 119/72; PULSE 64; RESP 18; TEMP 36.4; O2SAT 98
[2023-05-10 09:22] LABS: HIV - WCH Non-Reactive (Nonreactive)
--- NOTE | 2023-05-10 11:49 | PN_ITS ---
Subjective Subjective Patient seen and examined. He still complains of some weakness in his lower extremities but states is getting better. Review of systems otherwise negative. He has otherwise remained hemodynamically stable. CPK has trended down to around 10,700. Objective Data Objective Data Vital Signs: Vital Signs Temp Pulse Resp BP Pulse Ox O2 Del Method 97.6 F L 64 18 119/72 98 Room Air 05/10/23 08:30 05/10/23 08:30 05/10/23 08:30 05/10/23 08:30 05/10/23 08:30 05/10/23 08:31 Oxygen Delivery Method Room Air Weight: 187 lb 13.341 oz Body Mass Index (BMI) 26.9 Intake & Output: Intake and Output for Last 24 Hours 05/08/23 05/09/23 05/10/23 23:59 23:59 23:59 Intake Total 5121 / 5121 4320.0 / 4320.0 Output Total 3400 / 3400 4000 / 4000 Balance 1721 / 1721 320.0 / 320.0 Lab / Micro Data 05/10/23 05:05 05/10/23 05:05 Labs: Laboratory Results - last 24 hr 05/09/23 17:41: PT 15.3 H, INR 1.2 05/10/23 05:05: WBC 8.0, RBC 4.19 L, Hgb 15.0, Hct 42.9, MCV 102.4 H, MCH 35.8 H , MCHC 35.0, RDW Std Deviation 48.3 H, RDW Coeff of Ernesto 12.8, Plt Count 166, MPV 10.1, Immature Gran % (Auto) 0.600, Neut % (Auto) 91.6 H, Lymph % (Auto) 6.8 L, [place] % (Auto) 1.0, Eos % (Auto) 0.0, Baso % (Auto) 0.0, Absolute Neuts (auto) 7.3, Absolute Lymphs (auto) 0.54 L, Nucleated RBC % 0, Macrocytosis 1+, Sodium 138, Potassium 4.1, Chloride 108 H, Carbon Dioxide 25.0, Anion Gap 5, BUN 14, Creatinine 0.91, Estim Creat Clear Calc 122.56, Est GFR (MDRD) Af Amer 126, Est GFR (MDRD) Non-Af 104, BUN/Creatinine Ratio 15.4, Glucose 185 H, Calcium 7.9 L, Phosphorus 2.0 L, Magnesium 1.9, Total Bilirubin 0.80, AST 663 H, ALT 933 H, Alkaline Phosphatase 28 L, Total Creatine Kinase 51328 H, Total Protein 6.8, Albumin 3.2, Globulin 3.6, Albumin/Globulin Ratio 0.9, TSH 0.67, HIV 1&2 Anti body Non-Reactive Radiography Diagnostic Testing: Radiology Impression Lumbar Spine MRI 05/09/23 09:50 IMPRESSION: 1. There is mild the moderate intramuscular edema and swelling of the right iliacus muscle, lying on the inner surface of the right iliac wing. There is also mild edema in the muscle fibers of the origin of the right iliopsoas muscle. No definite intramuscular fluid collection is seen on the provided images. Muscle inflammation, infectious or inflammatory myositis, or muscle infarction can present in this manner. 2. Normal enhanced and unenhanced MR examination of the lumbar spine. Electronically Signed: Laureano Diaz MD at 13:06 EDT , ADDENDUM: 05/09/23 1320 IMPRESSION: 1. There is mild the moderate intramuscular edema and swelling of the right iliacus muscle, lying on the inner surface of the right iliac wing. There is also mild edema in the muscle fibers of the origin of the right iliopsoas muscle. No definite intramuscular fluid collection is seen on the provided images. Muscle inflammation, infectious or inflammatory myositis, or muscle infarction can present in this manner. 2. Normal enhanced and unenhanced MR examination of the lumbar spine. N.B. : The above Results were Read Back by Laureano Diaz MD to Jennifer Rudolph RN, and understanding confirmed on 05/09/2023 13:13:51 (ET). Electronically Signed: Laureano Diaz MD at 13:06 EDT , Physical Exam Const alert, oriented x3 and no apparent distress General Appearance: cooperative HEENT normocephalic, head/scalp atraumatic and moist oral mucous membranes Mouth: dry mucous membranes Eyes PERRL and EOMs intact bilaterally Neck no lymphadenopathy, supple and no JVD Lymph Lymphatic: no lymphadenopathy noted and no lymphedema noted Resp normal respiratory effort, normal air movement and clear to auscultation bilaterally Cardio regular rate, regular rhythm, S1 normal heart sound, S2 normal heart sound and no murmurs GI normal to inspection, nondistended, normoactive bowel sounds, soft to palpation, non-tender and non-distended Extremity normal capillary refill and no clubbing, cyanosis or edema Extremity Narrative: mild generalised tenderness with palpation of lower extremities. Skin General Skin Exam: no breakdown and turgor normal Neuro CN's II-XII intact bilaterally, no focal motor deficits, no sensory deficits noted and deep tendon reflexes 2+ bilaterally Motor Exam: general weakness Psych thought process normal, cooperative and affect normal Appearance: appropriate Assessment & Plan Assessment/Plan (1) Right leg weakness: (2) DILSHAD (acute kidney injury): (3) Rhabdomyolysis: QUALIFIERS: Rhabdomyolysis type: non-traumatic Qualified Code(s): M62.82 - Rhabdomyolysis PLAN: Plan #Rhabdomyolysis * CPK is trending downwards and is ~74124 today * continue hydration with IVF and trend CPK * #RLE weakness * neurology reviewed him and recommended continuing treatment for rhabdomyolysis * MRI of the lumbar spine showed no acute pathology and showed mild to moderate intramuscular edema and swelling of the right iliac US muscle. * to follow up with neurology on outpatient basis to check EMG. 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 * To continue with IV solumedrol to help with muscle inflammation * Check hepatitis panel and coagulation profile also. * continue PT/OT. Fall precautions. * * #Elevated liver enzymes * AST/ALT at 020890. These are trending downwards. We will continue to monitor. Hepatitis screen pending. HIV test is negative. * #DILSHAD: resolved. Will monitor #Leucocytosis: resolved. #History of opiate abuse: Has been on Vivitrol and naltrexone. Follow-up with addiction medicine on outpatient basis. Hepatitis panel and HIV screen pending. #Nicotine dependence: Counseled to quit. Nicotine patch as needed. DVT prophylaxis: Lovenox Charges/Coding Visit Charges Inpatient E&M: 22932 Subs Hosp L3
[2023-05-10] MEDS: 0.9% Saline Lock 10 ML Syringe IV ×2 (13:02→20:49)
[2023-05-10] MEDS: Enoxaparin 40 MG/0.4 ML Syringe SC (13:02)
--- NOTE | 2023-05-10 13:30 | CASEMGMT ---
RN?CM?SALMON TROLL FISHER?CM?to room to meet with patient for initial transition planning/care coordination?assessment.?RN?CM?introduced self and role at [facility].? Pt voices understanding and consents to?assessment?at this time.? Pt resting in bed in no distress at this time.? Pt is A/O at this time and answers all questions appropriately.?? Care providers, pharmacy, and demographics verified/updated at this time. PCP: No PCP. Pt has seen Dr Bhandari in the past but does not want him listed as his PCP and does not want his medical records faxed to his office, stating he is good friend's with his son and that it would be awkward. Offered a list of local PCP's and pt accepted. Specialists: none Preferred Pharmacy: [facility] Retail @ discharge Insurance: [place] Prescription Benefit: Pt states, I don't know. I think so. ? LNOK: Parents: Nicola and Marilu Infante Living Arrangements: Lives alone in an apt but was in the process of moving into an Air B/B. Pt plans to discharge to his grandfather's home where there are no steps and his mom plans to stay there with him to assist as needed. Pt states he has great family support. Transportation:?Pt states drives and family can assist as needed. DME: ? Denies using any DME. Pt states he will need a walker and states [employer] for DME co. HHC/SNF: No hx of either. Has done OP therapy @ [facility] in the past. Pt states would like a script for OP therapy. He states his bro-in-law is a therapist @ [facility] and most likely will see him after d/c. Pt wishes to return home with his family and states has no concerns with going home at time of discharge?CM?to follow for any further discharge planning/needs.? Pt voices no further concerns/needs at this time.? Advised pt to ask for?CM?if any further questions/concerns/needs arise.? Voices understanding. PLAN:??Home w/script for OP therapy and walker. Annita CHAVEZN?RN?CM
[2023-05-10 15:00] VITALS: BP 131/83; PULSE 72; RESP 18; TEMP 36.3; O2SAT 98
[2023-05-10 18:46] LABS: CPK Total, Creatine Kinase 10155 U/L (39-308)
[2023-05-10] MEDS: clonazePAM 1 MG Tablet PO (20:49)
[2023-05-10 20:50] VITALS: BP 117/61; PULSE 64; RESP 16; TEMP 37.1; O2SAT 96
[2023-05-11] MEDS: 0.9% Normal Saline (1000mL) 1,000 ML 150 ML IV ×4 (00:37→21:40)
[2023-05-11] MEDS: traMADol 50 MG Tablet PO ×3 (00:37→21:43)
[2023-05-11 03:00] VITALS: BP 105/59; PULSE 62; RESP 16; TEMP 36.6; O2SAT 96
[2023-05-11 05:07] LABS: HEPATITIS B SURFACE AG Negative (Negative); Hep C Antibodies Non Reactive (Non Reactive); Hepatitis A IgM Antibody Negative (Negative); Hepatitis B Core AB IgM Negative (Negative)
[2023-05-11 06:32] LABS: Absolute Lymphocyte Count 0.99 X10^3/uL (0.83-4.51); Absolute Neutrophil Count 11.7 X10^3/uL (2.0-7.7); Basophil# 0.01 X10^3/uL; Basophil% 0.1 % (0-1); Hematocrit 41.3 % (40-54); Hemoglobin 13.7 g/dL (13.0-16.5); Lymphocyte # 0.99 X10^3/ul (0.83-4.51); Lymphocyte % 7.4 % (19-41); Mean Corp Hgb Conc 33.2 g/dL (32-36); Mean Corpuscular Hgb 34.5 pg (27.0-32.0); Mean Platelet Vol. 10.4 fl (6.2-12.0); Monocyte# 0.54 X10^3/uL; NRBC Flagged by Analyzer 0 % (0-5); Neutrophil % 86.9 % (47-70); Platelet Count 196 K/mm3 (150-450); RBC Distribution Width CV 12.8 % (11.6-14.6); RBC Distribution Width SD 49.5 fl (35.1-43.9); Red Blood Count 3.97 M/mm3 (4.6-6.2); White Blood Count 13.5 K/mm3 (4.4-11.0)
[2023-05-11 07:14] LABS: Anion Gap 6 (5-15); BUN 16 mg/dL (7-18); BUN/Creat Ratio 20.6 RATIO (10-20); CPK Total, Creatine Kinase 6180 U/L (39-308); Calcium,Total 7.7 mg/dL (8.5-10.1); Chloride 111 mmol/L (98-107); Creatinine, Serum 0.78 mg/dL (0.70-1.30); EST Glomerular Filtration Rate 125 mL/min (>60); Est Glom Filt Rate - Afr Amer 151 mL/min (>60); Estimated Creatinine Clearance 142.98 ml/min; Glucose 161 mg/dL (74-106); Potassium 3.7 mmol/L (3.5-5.1); Sodium Level 141 mmol/L (136-145)
[2023-05-11 07:26] VITALS: O2SAT 96
[2023-05-11] MEDS: Enoxaparin 40 MG/0.4 ML Syringe SC (07:33)
[2023-05-11 12:20] VITALS: BP 109/65; PULSE 69; RESP 16; TEMP 36.6; O2SAT 98
--- NOTE | 2023-05-11 12:51 | PN_ITS ---
Subjective Subjective Patient seen and examined. HE had no complaints today. He had wanted to be discharged home yesterday but after being counseled about his markedly elevated CPK and the risk of kidney damage if the CPK did not trend downwards, he was agreeable to staying. Review of systems is otherwise negative. CPK is down to 6180 today. Objective Data Objective Data Vital Signs: Vital Signs Temp Pulse Resp BP Pulse Ox O2 Del Method 97.9 F 69 16 109/65 98 Room Air 05/11/23 12:20 05/11/23 12:20 05/11/23 12:20 05/11/23 12:20 05/11/23 12:20 05/11/23 12:20 Oxygen Delivery Method Room Air Weight: 187 lb 13.341 oz Body Mass Index (BMI) 26.9 Intake & Output: Intake and Output for Last 24 Hours 05/09/23 05/10/23 05/11/23 23:59 23:59 23:59 Intake Total 5121 / 5121 5830.0 / 5830.0 1450 / 1450 Output Total 3400 / 3400 4000 / 4000 Balance 1721 / 1721 1830.0 / 1830.0 1450 / 1450 Lab / Micro Data 05/11/23 05:55 05/11/23 05:55 Labs: Laboratory Results - last 24 hr 05/10/23 05:05: Hepatitis A IgM Ab Negative, Hep Bs Antigen Negative, Hep B Core IgM Ab Negative, Hepatitis C Ab (EIA) Non Reactive, Hep C Ab Comment Comment 05/10/23 17:39: Total Creatine Kinase 34777 H 05/11/23 05:55: WBC 13.5 H, RBC 3.97 L, Hgb 13.7, Hct 41.3, MCV 104.0 H, MCH 34.5 H, MCHC 33.2 D, RDW Std Deviation 49.5 H, RDW Coeff of Ernesto 12.8, Plt Count 196, MPV 10.4, Immature Gran % (Auto) 1.600 H, Neut % (Auto) 86.9 H, Lymph % (Auto) 7.4 L, [place] % (Auto) 4.0, Eos % (Auto) 0.0, Baso % (Auto) 0.1, Absolute Neuts (auto) 11.7 H, Absolute Lymphs (auto) 0.99, Nucleated RBC % 0, Sodium 141, Potassium 3.7, Chloride 111 H, Carbon Dioxide 24.0, Anion Gap 6, BUN 16, C reatinine 0.78, Estim Creat Clear Calc 142.98, Est GFR (MDRD) Af Amer 151, Est GFR (MDRD) Non-Af 125, BUN/Creatinine Ratio 20.6 H, Glucose 161 H, Calcium 7.7 L , Total Creatine Kinase 6180 H Radiography Diagnostic Testing: Radiology Impression Abdomen Ultrasound 05/10/23 07:30 IMPRESSION: Borderline hepatomegaly. Electronically Signed: Bk Barker MD at 13:29 EDT , Physical Exam Const alert, oriented x3, no apparent distress, average body habitus, healthy appearing and well nourished General Appearance: cooperative HEENT normocephalic, head/scalp atraumatic and moist oral mucous membranes Eyes PERRL, EOMs intact bilaterally and conjunctivae normal Eyes Narrative: No scleral icterus Neck no lymphadenopathy, supple and no JVD Lymph Lymphatic: no lymphadenopathy noted and no lymphedema noted Resp normal respiratory effort, normal air movement, no retractions, no use of accessory muscles and clear to auscultation bilaterally Auscultation: Negative for rales, rhonchi or wheezes Cardio regular rate, regular rhythm, S1 normal heart sound, S2 normal heart sound, no murmurs, no rub, no gallops and no clicks GI normal to inspection, nondistended, normoactive bowel sounds, soft to palpation, non-tender and non-distended Extremity normal capillary refill and no clubbing, cyanosis or edema Skin General Skin Exam: no breakdown and turgor normal Neuro oriented x3, CN's II-XII intact bilaterally, No moves all extremities, no focal motor deficits, no sensory deficits noted and deep tendon reflexes 2+ bilaterally Sensorium / Orientation: awake, alert, oriented to person, oriented to place and oriented to time Speech: speech normal Motor Exam: strength 5/5 throughout and general weakness Psych thought process normal, cooperative and affect normal Appearance: appropriate Assessment & Plan Assessment/Plan (1) Right leg weakness: (2) DILSHAD (acute kidney injury): (3) Rhabdomyolysis: QUALIFIERS: Rhabdomyolysis type: non-traumatic Qualified Code(s): M62.82 - Rhabdomyolysis PLAN: Plan #Rhabdomyolysis * CPK is trending downwards and is down to 6180 from ~89325 yesterday * continue hydration with IVF and trend CPK * #RLE weakness * neurology reviewed him and recommended continuing treatment for rhabdomyolysis * MRI of the lumbar spine showed no acute pathology and showed mild to moderate intramuscular edema and swelling of the right iliac US muscle. * to follow up with neurology on outpatient basis to check EMG. 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 * To continue with IV solumedrol to help with muscle inflammation * Check hepatitis panel and coagulation profile also. * continue PT/OT. Fall precautions. * * #Elevated liver enzymes * AST/ALT are trending downwards. * Hepatitis panel and HIV screen are all nonreactive * RUQ ultrasound showed borderline hepatomegaly, kidneys were normal * #DILSHAD: resolved. Will monitor #Leucocytosis: resolved. #History of opiate abuse: Has been on Vivitrol and naltrexone. Follow-up with addiction medicine on outpatient basis. Hepatitis panel and HIV screen pending. #Nicotine dependence: Counseled to quit. Nicotine patch as needed. DVT prophylaxis: Lovenox Disposition: anticipate dc over the next 24-48 hours once CPK levels trend downwards further Charges/Coding Visit Charges Inpatient E&M: 77082 Subs Hosp L2
[2023-05-11 15:08] LABS: Aldolase 2.8 U/L (3.3-10.3)
[2023-05-11 15:14] VITALS: BP 114/62; PULSE 63; RESP 16; TEMP 36.8; O2SAT 100
[2023-05-11 19:00] LABS: CPK Total, Creatine Kinase 4512 U/L (39-308)
[2023-05-11] MEDS: clonazePAM 1 MG Tablet PO (21:43)
[2023-05-11 22:00] VITALS: BP 124/64; PULSE 76; RESP 18; TEMP 37.1; O2SAT 100
[2023-05-12] MEDS: 0.9% Normal Saline (1000mL) 1,000 ML 150 ML IV ×2 (04:32→09:58)
[2023-05-12 04:38] VITALS: BP 106/50; PULSE 50; RESP 18; TEMP 36.7; O2SAT 98
[2023-05-12 06:09] LABS: Absolute Lymphocyte Count 2.01 X10^3/uL (0.83-4.51); Absolute Neutrophil Count 7.6 X10^3/uL (2.0-7.7); Basophil# 0.01 X10^3/uL; Basophil% 0.1 % (0-1); Eosinophil# 0.01 X10^3/uL; Eosinophils% 0.1 % (0-5); Hematocrit 41.2 % (40-54); Hemoglobin 13.7 g/dL (13.0-16.5); Lymphocyte # 2.01 X10^3/ul (0.83-4.51); Lymphocyte % 19.4 % (19-41); Mean Corp Hgb Conc 33.3 g/dL (32-36); Mean Corpuscular Hgb 34.5 pg (27.0-32.0); Mean Corpuscular Volume 103.8 fL (80-94); Mean Platelet Vol. 10.2 fl (6.2-12.0); Monocyte# 0.58 X10^3/uL; Monocyte% 5.6 % (0-10); NRBC Flagged by Analyzer 0 % (0-5); Neutrophil % 73.5 % (47-70); Platelet Count 180 K/mm3 (150-450); RBC Distribution Width CV 12.7 % (11.6-14.6); RBC Distribution Width SD 49.3 fl (35.1-43.9); Red Blood Count 3.97 M/mm3 (4.6-6.2); White Blood Count 10.3 K/mm3 (4.4-11.0)
[2023-05-12 07:34] LABS: Anion Gap 3 (5-15); BUN 13 mg/dL (7-18); BUN/Creat Ratio 18.5 RATIO (10-20); CPK Total, Creatine Kinase 2661 U/L (39-308); Calcium,Total 7.5 mg/dL (8.5-10.1); Chloride 112 mmol/L (98-107); EST Glomerular Filtration Rate 140 mL/min (>60); Est Glom Filt Rate - Afr Amer 170 mL/min (>60); Estimated Creatinine Clearance 159.33 ml/min; Glucose 97 mg/dL (74-106); Potassium 4.1 mmol/L (3.5-5.1); Sodium Level 141 mmol/L (136-145)
[2023-05-12 08:10] VITALS: O2SAT 95
[2023-05-12 09:48] VITALS: BP 115/63; PULSE 60; RESP 16; TEMP 36.6; O2SAT 98
[2023-05-12] MEDS: Enoxaparin 40 MG/0.4 ML Syringe SC (09:54)
--- NOTE | 2023-05-12 15:44 | PCM.DC.SUM ---
Providers Date of Admission: 05/08/23 Date of Discharge: 05/12/23 Primary Care Physician: Yasmine Primary Care Phys Reason For Visit: RHABDOMYLOSIS Diagnosis Discharge Diagnosis (1) Right leg weakness: Status: Acute Code(s): R29.898 - Other symptoms and signs involving the musculoskeletal system (2) DILSHAD (acute kidney injury): Status: Acute Code(s): N17.9 - Acute kidney failure, unspecified (3) Rhabdomyolysis: Status: Acute Code(s): M62.82 - Rhabdomyolysis Qualifiers: Rhabdomyolysis type: non-traumatic Qualified Code(s): M62.82 - Rhabdomyolysis Plan #Rhabdomyolysis CPK is trending downwards and is down to 6180 from ~65581 yesterday continue hydration with IVF and trend CPK #RLE weakness neurology reviewed him and recommended continuing treatment for rhabdomyolysis MRI of the lumbar spine showed no acute pathology and showed mild to moderate intramuscular edema and swelling of the right iliac US muscle. to follow up with neurology on outpatient basis to check EMG. 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 To continue with IV solumedrol to help with muscle inflammation Check hepatitis panel and coagulation profile also. continue PT/OT. Fall precautions. #Elevated liver enzymes AST/ALT are trending downwards. Hepatitis panel and HIV screen are all nonreactive RUQ ultrasound showed borderline hepatomegaly, kidneys were normal #DILSHAD: resolved. Will monitor #Leucocytosis: resolved. #History of opiate abuse: Has been on Vivitrol and naltrexone. Follow-up with addiction medicine on outpatient basis. Hepatitis panel and HIV screen pending. #Nicotine dependence: Counseled to quit. Nicotine patch as needed. DVT prophylaxis: Lovenox Disposition: anticipate dc over the next 24-48 hours once CPK levels trend downwards further Medications at Discharge Home Medications clonazepam 1 mg tablet (Klonopin) 1 mg PO .prn qhs sleep 05/08/23 naltrexone .Route no taking 05/08/23 naltrexone 50 mg tablet 50 mg PO Q24H opiate karrie 05/08/23 quetiapine 50 mg tablet (Seroquel) 50 mg PO .PRN qhs sleep 05/08/23 Hospital Course Operations None Procedures None Summary of Care Provided Minutes Spent on Discharge: 55 Hospital Course: Patient is a 28-year-old male with a past medical history of opioid abuse on Vivitrol shots and naltrexone was admitted through the ED with a complaint of bilateral lower extremity numbness which was worse on the right than the left. His symptoms have started the day after he went golfing. He had had multiple falls on the day of admission and was too weak to even perform his activities of daily living so his mother brought him into the hospital. Imaging done showed no evidence of acute lumbar spinal fracture or spondylolisthesis. CPK done was markedly elevated at 22,555. WBC was also elevated but was thought to likely be due to reactive process. Creatinine was also elevated at 2.04. He was admitted and managed for rhabdomyolysis and hydrated aggressively with IV fluids. MRI of the lumbar spine showed mild to moderate intramuscular edema and swelling of the right eyelid psoas muscle. 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 Patient was given a dose of IV Solu-Medrol. Hepatitis panel was negative. Liver enzymes were also elevated and subsequently trended downwards. Patient CPK trended down to a kaelyn of around 2000. Patient had initially wanted to sign out AGAINST MEDICAL ADVICE but upon counseling was agreeable to staying. However on 05/12/2023, patient signed out AGAINST MEDICAL ADVICE because he said he felt much better. Patient seen and examined prior to his signing out AGAINST MEDICAL ADVICE on 05/12/2023. At that time he was amenable to staying in the hospital but subsequently signed out AMA. Labs and vitals reviewed. Physical Exam Const alert, oriented x3, no apparent distress, average body habitus, no limitations, healthy appearing and well nourished General Appearance: cooperative, comfortable, well kempt and well developed HEENT normocephalic, head/scalp atraumatic, hearing grossly normal bilaterally and moist oral mucous membranes Mouth: oral and palatal mucosa normal Eyes PERRL, EOMs intact bilaterally and conjunctivae normal Eyes Narrative: No scleral icterus Neck no lymphadenopathy, supple and no JVD Neck Narrative: Trachea, no thyroid enlargement Lymph Lymphatic: no lymphadenopathy noted and no lymphedema noted Resp normal respiratory effort, normal air movement, no retractions, no use of accessory muscles and clear to auscultation bilaterally Auscultation: Negative for rales, rhonchi or wheezes Cardio regular rate, regular rhythm, S1 normal heart sound, S2 normal heart sound, no murmurs, no rub, no gallops and no clicks GI normal to inspection, nondistended, normoactive bowel sounds, soft to palpation, non-tender and non-distended Extremity normal to inspection, full ROM, normal capillary refill and no clubbing, cyanosis or edema Extremity Narrative: mild generalised tenderness with palpation of lower extremities. Skin Skin Narrative: No bruising or ecchymosis noted, skin is not tight around musculature General Skin Exam: no breakdown and turgor normal Neuro oriented x3, CN's II-XII intact bilaterally, moves all extremities, no focal motor deficits, no sensory deficits noted and deep tendon reflexes 2+ bilaterally Sensorium / Orientation: awake, alert, oriented to person, oriented to place and oriented to time Speech: speech normal Motor Exam: strength 5/5 throughout and general weakness Psych thought process normal, cooperative and affect normal Appearance: appropriate Weight / BMI Weight Weight: 187 lb 13.341 oz Body Mass Index (BMI) 26.9 ABG / Lab / Microbiology Data 05/12/23 05:45 05/12/23 05:45 Laboratory: Laboratory Results - last 24 hr 05/11/23 18:18: Total Creatine Kinase 4512 H 05/12/23 05:45: WBC 10.3, RBC 3.97 L, Hgb 13.7, Hct 41.2, MCV 103.8 H, MCH 34.5 H, MCHC 33.3, RDW Std Deviation 49.3 H, RDW Coeff of Ernesto 12.7, Plt Count 180, MPV 10.2, Immature Gran % (Auto) 1.300 H, Neut % (Auto) 73.5 H, Lymph % (Auto) 19.4, [place] % (Auto) 5.6, Eos % (Auto) 0.1, Baso % (Auto) 0.1, Absolute Neuts (auto) 7.6, Absolute Lymphs (auto) 2.01, Nucleated RBC % 0, Sodium 141, Potassium 4.1, Chloride 112 H, Carbon Dioxide 26.0, Anion Gap 3 L, BUN 13, Creatinine 0.70, Estim Creat Clear Calc 159.33, Est GFR (MDRD) Af Amer 170, Est GFR (MDRD) Non-Af 140, BUN/Creatinine Ratio 18.5, Glucose 97, Calcium 7.5 L, Total Creatine Kinase 2661 H D/C Instructions Discharge Diet: No restrictions Meaningful Use Info Meaningful Use Diagnoses (Choose all that apply): None applicable Discharge Plan Admission Admit Date/Time: 05/08/23 22:06 Attending Provider: Anabella Rose Primary Care Provider: Care Physician,Yasmine Primary Consulting Providers: Moses Perez; Lia Arrieta Discharge Orders/Prescriptions Prescriptions: No Action naltrexone .Route naltrexone 50 mg tablet 50 mg PO Q24H Patient Comments: TAKE 1 TABLET BY MOUTH EVERY DAY quetiapine [Seroquel] 50 mg tablet 50 mg PO .PRN qhs clonazepam [Klonopin] 1 mg tablet 1 mg PO .prn qhs Rx Instructions: administer 30 minutes before bedtime Referrals / Follow Up: Care Physician,No Primary [Primary Care Provider] - Disposition Disposition (needs filled in before D/C Order can be placed): Against Medical Advice Charges/Coding Visit Charges Inpatient E&M: 14766 Disch Hosp >30min
== END 2023-05-12 11:33 | disposition left against medical advice (07) | DRG 558 ==
LOC: ED 19:58 → MS3 22:32
PROVIDERS: Internal Medicine; Admitting Provider Hospitalist; Emergency Provider Emergency Medicine; Visit Provider Student in an Organized Health Care Education/Training Program
DX: M62.82 Rhabdomyolysis (principal); E87.20 Acidosis, unspecified; N17.9 Acute kidney failure, unspecified; F11.11 Opioid abuse, in remission; D72.829 Elevated white blood cell count, unspecified; F17.210 Nicotine dependence, cigarettes, uncomplicated; G57.21 Lesion of femoral nerve, right lower limb; R74.01 Elevation of levels of liver transaminase levels; M62.81 Muscle weakness (generalized); T50.7X5A Adverse effect of analeptics and opioid receptor antagonists, initial encounter; Z53.29 Procedure and treatment not carried out because of patient's decision for other reasons; R29.6 Repeated falls; Z79.899 Other long term (current) drug therapy
CPT/HCPCS: 36415; 72100; 72158; 72197; 73502; 75635; 76705; 80048; 80053; 80074; 80307; 82077; 82085; 82550; 83605; 83735; 84100; 84443; 85025; 85610; 85652; 86140; 86703; 97162; 97165; 97530; 97535; 99283; A9575; J7030; Q9967; A4216; J2930

== ENCOUNTER → 2023-05-25 | Outpatient (CLI) | payer BC, SELFPAY ==
[2023-05-25 17:45] LABS: Absolute Lymphocyte Count 2.09 X10^3/uL (0.83-4.51); Absolute Neutrophil Count 2.6 X10^3/uL (2.0-7.7); Basophil# 0.06 X10^3/uL; Basophil% 1.1 % (0-1); Eosinophil# 0.07 X10^3/uL; Eosinophils% 1.3 % (0-5); Hemoglobin 14.2 g/dL (13.0-16.5); Lymphocyte # 2.09 X10^3/ul (0.83-4.51); Lymphocyte % 38.1 % (19-41); Mean Corpuscular Hgb 33.9 pg (27.0-32.0); Mean Corpuscular Volume 102.6 fL (80-94); Mean Platelet Vol. 10.2 fl (6.2-12.0); Monocyte# 0.61 X10^3/uL; Monocyte% 11.1 % (0-10); NRBC Flagged by Analyzer 0 % (0-5); Neutrophil # 2.64 X10^3/uL (2.7-7.7); Neutrophil % 48.2 % (47-70); Platelet Count 222 K/mm3 (150-450); RBC Distribution Width CV 12.3 % (11.6-14.6); RBC Distribution Width SD 46.5 fl (35.1-43.9); Red Blood Count 4.19 M/mm3 (4.6-6.2); White Blood Count 5.5 K/mm3 (4.4-11.0)
[2023-05-25 18:51] LABS: ALB/GLOB Ratio 1.1 RATIO (0.9-2.4); AST(SGOT) 26 U/L (15-37); Alanine Aminotransfer ALT/SGPT 53 U/L (16-61); Albumin, Serum 3.7 g/dL (3.2-5.0); Alkaline Phosphatase 27 U/L (45-117); Anion Gap 4 (5-15); BUN 19 mg/dL (7-18); BUN/Creat Ratio 23.5 RATIO (10-20); CPK Total, Creatine Kinase 389 U/L (39-308); Calcium,Total 8.6 mg/dL (8.5-10.1); Chloride 107 mmol/L (98-107); Creatinine, Serum 0.81 mg/dL (0.70-1.30); EST Glomerular Filtration Rate 119 mL/min (>60); Est Glom Filt Rate - Afr Amer 144 mL/min (>60); Globulin 3.4 g/dL (2.2-4.2); Glucose 70 mg/dL (74-106); Potassium 3.9 mmol/L (3.5-5.1); Protein, Total 7.1 g/dL (6.4-8.2); Sodium Level 139 mmol/L (136-145); Thyroid Stim Hormone (TSH) 0.58 uIU/mL (0.358-3.74)
[2023-05-27 14:09] LABS: Creatine Kinase BB 0 % (0); Creatine Kinase MB 2 % (0-3); Creatine Kinase MM 94 % (97-100); Creatine Kinase,Total,Serum 382 U/L (49-439); Macro I 4 % (Not Observed); Macro II 0 % (Not Observed)
== END | disposition home or self-care (01) ==
PROVIDERS: PCP Family Medicine; Referring Provider Family Medicine; Visit Provider Family Medicine
DX: M62.82 Rhabdomyolysis (principal)
CPT/HCPCS: 36415; 80053; 82550; 82552; 84443; 85025

== ENCOUNTER 2023-06-09 08:04 | Inpatient (IN) | payer BC, SELFPAY ==
[2023-06-09 08:05] VITALS: BP 109/80; PULSE 86; RESP 14; TEMP 36.3; O2SAT 100; BMI 25.1
--- NOTE | 2023-06-09 08:08 | EX.ED.DYSGE1 ---
HPI History of Present Illness Chief Complaint: Substance Abuse [facility] Medical History Alcohol abuse Cough Substance abuse Home Medications clonazepam 1 mg tablet (Klonopin) 1 mg PO .prn qhs sleep 05/08/23 [History Last Taken 05/06/23 21:00] naltrexone .Route no taking 05/08/23 [History Last Taken Unknown] naltrexone 50 mg tablet 50 mg PO Q24H opiate karrie 05/08/23 [History Last Taken 05/07/23 07:00 50 mg] quetiapine 50 mg tablet (Seroquel) 50 mg PO .PRN qhs sleep 05/08/23 [History Last Taken 05/04/23 21:00] Allergy/AdvReac Type Severity Reaction Status Date / Time No Known Allergies Allergy Verified 06/09/23 08:06 Family History Other Cancer Surgical History H/O ankle fusion Social History (Updated 05/09/23 @ 03:[address] Moses Perez MD) Smoking Status: Never smoker substance use type: marijuana EXAM Physical Exam Const Vital Signs: 06/09/23 08:05 Temperature 97.3 F L Temperature Source Temporal Pulse Rate 86 Respiratory Rate 14 Blood Pressure 109/80 Blood Pressure Mean 89 Pulse Ox 100 Oxygen Delivery Method Room Air [facility] [place] [facility] [place] Narr[place] Medical decision making narrative: HISTORY OF PRESENT ILLNESS: 28-year-old male here with concern for opiate use disorder. Requesting detox from opiates. He further states he last used on Wednesday evening. He states he would like opiate detoxification. States he takes pills laced with fentanyl. REVIEW OF SYSTEMS: Pertinent positives: Opiate use Pertinent negatives: Chest pain, headache, fever, back pain. PHYSICAL EXAM: Nursing triage notes reviewed, Vital signs reviewed Constitutional: please see mdm HENT: MMM Eyes: Pupils equal round and reactive to light, Extraocular muscles intact Neck: No stridor, no JVD, full neck ROM Lungs: Clear to auscultation, No wheezing or rales. No increased work of breathing, no conversational dyspnea, no accessory muscle use, no nasal flaring. No respiratory distress noted Heart: Regular rate and rhythm, No murmurs, No rubs and No gallops, 2+ distal pulses (radial, femoral, posterior tibial) in all extremities Abdomen: Soft, there is no tenderness, rigidity, rebound or guarding, no obvious peritoneal signs, no palpable pulsatile abdominal masses, no auscultated abdominal bruit : No CVAT Extremities: No edema Neuro: No focal neurological deficits, cranial nerves II through XII intact, 5/5 strength in all extremities. Intact sensation to light touch in all extremities, 2+ reflexes bilateral patella tendons. Normal gait. No ataxia. Skin: No rash or lesions noted MEDICAL DECISION MAKING: Chief Complaint: Opiate use External records reviewed: Last ED visit in April 2023 for acute kidney injury. During this visit it was stated that he went through detox in early March. Factors affecting care: History of opiate use disorder Social determinants of health: History of drug abuse History obtained from others: Patient significant other Consults: Internal medicine MDM Narrative: Patient was hemodynamically stable, afebrile, nontoxic-appearing. ALL IMAGES (IF OBTAINED) HAVE BEEN PERSONALLY REVIEWED AND INTERPRETED BY MYSELF. EKG with normal sinus rhythm, normal axis, frequent PVCs, no STEMI CBC without leukocytosis, severe anemia, no thrombocytopenia. BMP without evidence of significant electrolyte abnormalities, no anion gap, no acute kidney injury. Urine tox cream positive for benzodiazepines and cannabinoids interestingly negative for opiates Alcohol negative The synthesis of the patient's history, physical exam labs images show no evidence of severe life-threatening process. Patient's peripheral inpatient mission for opiate detox. Did call the internal medicine physician for admission. The patient and/or family, caregivers express understanding. The patient and/or family, caregivers agrees with the plan. Shared decision making: I will have a discussion with the patient and or visitors regarding risk/benefits of further testing or admission. They will be made aware of of the risk/benefits inherent in this decision they will be given the opportunity to voice understanding. Total critical care time today provided was at least 0 minutes. This excludes separately billable procedures. Critical care time (if documented) is secondary to the patient having high probability of clinically significant/life threatening deterioration in the patient's condition which required my urgent intervention. Impression: 1. Opiate use disorder Dispo: Admit Lab Data Attestation: I reviewed the patient's lab results. Labs: Laboratory Results - last 24 hr 06/09/23 06/09/23 08:49 08:55 WBC 6.5 RBC 4.26 L Hgb 14.6 Hct 44.1 MCV 103.5 H MCH 34.3 H MCHC 33.1 RDW Std Deviation 45.6 H RDW Coeff of Ernesto 12.1 Plt Count 212 MPV 10.1 Immature Gran % (Auto) 0.300 Neut % (Auto) 76.0 H Lymph % (Auto) 11.3 L [place] % (Auto) 10.4 H Eos % (Auto) 1.2 Baso % (Auto) 0.8 Absolute Neuts (auto) 4.9 Absolute Lymphs (auto) 0.73 L Nucleated RBC % 0 Sodium 138 Potassium 4.1 Chloride 107 Carbon Dioxide 30.0 Anion Gap 1 L BUN 8 Creatinine 0.82 Estim Creat Clear Calc 140.29 Est GFR (MDRD) Af Amer 142 Est GFR (MDRD) Non-Af 117 BUN/Creatinine Ratio 9.8 L Glucose 106 Calcium 8.6 Total Bilirubin 0.20 Direct Bilirubin 0.12 AST 24 ALT 33 Alkaline Phosphatase 24 L Total Protein 6.8 Albumin 3.4 Globulin 3.4 Urine Opiates Screen NEGATIVE Urine Methadone Screen NEGATIVE Ur Barbiturates Screen NEGATIVE Ur Phencyclidine Scrn NEGATIVE Ur Amphetamines Screen NEGATIVE MDMA (Ecstasy) Screen NEGATIVE U Benzodiazepines Scrn POSITIVE H Urine Cocaine Screen NEGATIVE U Cannabinoids Screen POSITIVE H Ur Drug Screen Comment Ethyl Alcohol < 3.0 Discharge Plan Disposition Disposition: Acute Care Hospital [facility] Discharge Date/Time: 06/09/23 11:13
--- NOTE | 2023-06-09 08:27 | EKG12_ITS ---
Test Reason : Blood Pressure : / mmHG Vent. Rate : 077 BPM Atrial Rate : 077 BPM P-R Int : 166 ms QRS Dur : 094 ms QT Int : 372 ms P-R-T Axes : 007 000 046 degrees QTc Int : 420 ms Sinus rhythm with occasional Premature ventricular complexes Otherwise normal ECG No previous ECGs available Confirmed by ANDREAS BURNETT, CHUCHO ([id number]), marketing editor JOVANA CHAVIRA ([id number]) on 06/11/2023 7:04:27 AM Referred By: Confirmed By:JR JOHNS MD
--- NOTE | 2023-06-09 08:36 | NURSING ---
NO OLD EKGS
[2023-06-09 09:06] LABS: Absolute Lymphocyte Count 0.73 X10^3/uL (0.83-4.51); Absolute Neutrophil Count 4.9 X10^3/uL (2.0-7.7); Basophil# 0.05 X10^3/uL; Basophil% 0.8 % (0-1); Eosinophil# 0.08 X10^3/uL; Eosinophils% 1.2 % (0-5); Hematocrit 44.1 % (40-54); Hemoglobin 14.6 g/dL (13.0-16.5); Lymphocyte # 0.73 X10^3/ul (0.83-4.51); Lymphocyte % 11.3 % (19-41); Mean Corp Hgb Conc 33.1 g/dL (32-36); Mean Corpuscular Hgb 34.3 pg (27.0-32.0); Mean Corpuscular Volume 103.5 fL (80-94); Mean Platelet Vol. 10.1 fl (6.2-12.0); Monocyte# 0.67 X10^3/uL; Monocyte% 10.4 % (0-10); NRBC Flagged by Analyzer 0 % (0-5); Neutrophil # 4.91 X10^3/uL (2.7-7.7); Platelet Count 212 K/mm3 (150-450); RBC Distribution Width CV 12.1 % (11.6-14.6); RBC Distribution Width SD 45.6 fl (35.1-43.9); Red Blood Count 4.26 M/mm3 (4.6-6.2); White Blood Count 6.5 K/mm3 (4.4-11.0)
[2023-06-09 09:17] LABS: Amphetamine Urine VISTA NEGATIVE (<1000 ng/mL); Barbiturate Urine VISTA NEGATIVE (< 200 ng/mL); Benzodiazepine Urine VISTA POSITIVE (< 200 ng/mL); Cocaine Urine VISTA NEGATIVE (< 300 ng/mL); Ecstacy Urine VISTA NEGATIVE (< 500 ng/mL); Methadone Urine VISTA NEGATIVE (< 300 ng/mL); PCP Urine VISTA NEGATIVE (< 25 ng/mL); THC Urine VISTA POSITIVE (< 50 ng/mL); Vista UDS pH Range 7
[2023-06-09 09:18] LABS: Anion Gap 1 (5-15); BUN 8 mg/dL (7-18); BUN/Creat Ratio 9.8 RATIO (10-20); Calcium,Total 8.6 mg/dL (8.5-10.1); Chloride 107 mmol/L (98-107); Creatinine, Serum 0.82 mg/dL (0.70-1.30); EST Glomerular Filtration Rate 117 mL/min (>60); Est Glom Filt Rate - Afr Amer 142 mL/min (>60); Estimated Creatinine Clearance 140.29 ml/min; Glucose 106 mg/dL (74-106); Potassium 4.1 mmol/L (3.5-5.1); Sodium Level 138 mmol/L (136-145)
[2023-06-09 09:32] LABS: Alcohol, Blood (Medical)-Serum < 3.0 mg/dL
--- NOTE | 2023-06-09 09:46 | PCM.HP.STD ---
HPI - General General Date of Admission: 06/09/23 HPI Narrative BREEZY RIVERA, is a 28 M who presents [facility] Medical History Alcohol abuse Cough Substance abuse Home Medications clonazepam 1 mg tablet (Klonopin) 1 mg PO .prn qhs sleep 05/08/23 [History Last Taken 05/06/23 21:00] naltrexone .Route no taking 05/08/23 [History Last Taken Unknown] naltrexone 50 mg tablet 50 mg PO Q24H opiate karrie 05/08/23 [History Last Taken 05/07/23 07:00 50 mg] quetiapine 50 mg tablet (Seroquel) 50 mg PO .PRN qhs sleep 05/08/23 [History Last Taken 05/04/23 21:00] Allergy/AdvReac Type Severity Reaction Status Date / Time No Known Allergies Allergy Verified 06/09/23 08:06 Family History Other Cancer Surgical History H/O ankle fusion Social History (Updated 05/09/23 @ 03:[address] Moses Perez MD) Smoking Status: Never smoker substance use type: marijuana Vital Signs Vital Signs Vital Signs: 06/09/23 08:05 Temperature 97.3 F L Temperature Source Temporal Pulse Rate 86 Respiratory Rate 14 Blood Pressure 109/80 Blood Pressure Mean 89 Pulse Ox 100 Oxygen Delivery Method Room Air Weight Weight: 81.647 kg Body Mass Index (BMI) 25.1 Results Lab / Micro Data 06/09/23 08:55 06/09/23 08:55 Labs: Laboratory Results - last 24 hr 06/09/23 08:49: Urine Opiates Screen NEGATIVE, Urine Methadone Screen NEGATIVE, Ur Barbiturates Screen NEGATIVE, Ur Phencyclidine Scrn NEGATIVE, Ur Amphetamines Screen NEGATIVE, MDMA (Ecstasy) Screen NEGATIVE, U Benzodiazepines Scrn POSITIVE H, Urine Cocaine Screen NEGATIVE, U Cannabinoids Screen POSITIVE H, Ur Drug Screen Comment 06/09/23 08:55: WBC 6.5, RBC 4.26 L, Hgb 14.6, Hct 44.1, MCV 103.5 H, MCH 34.3 H, MCHC 33.1, RDW Std Deviation 45.6 H, RDW Coeff of Ernesto 12.1, Plt Count 212, MPV 10.1, Immature Gran % (Auto) 0.300, Neut % (Auto) 76.0 H, Lymph % (Auto) 11.3 L, [place] % (Auto) 10.4 H, Eos % (Auto) 1.2, Baso % (Auto) 0.8, Absolute Neuts (auto) 4.9, Absolute Lymphs (auto) 0.73 L, Nucleated RBC % 0, Sodium 138, Potassium 4.1, Chloride 107, Carbon Dioxide 30.0, Anion Gap 1 L, BUN 8, Creatinine 0.82, Estim Creat Clear Calc 140.29, Est GFR (MDRD) Af Amer 142, Est GFR (MDRD) Non-Af 117, BUN/Creatinine Ratio 9.8 L, Glucose 106, Calcium 8.6, Ethyl Alcohol < 3.0 Assessment & Plan Assessment/Plan (1) Opiate abuse, continuous: PLAN: Plan Patient is a 28-year-old male with history of opiate use disorder, recent history of rhabdomyolysis who presented to [facility] ED on 06/09/2023 for opiate detoxification. 1. Opiate use disorder Patient reports using intranasal fentanyl, as well as pills laced with fentanyl. Last use was on Wednesday evening. Patient has gone to treatment facilities for detoxification in the past. Has p.o. naltrexone daily on home medication list but has not been taking this. Has also been on Suboxone in the past with good relief of opiate withdrawal symptoms. ? Admit under inpatient status to [facility]. Case management consulted. Opiate stabilization order set used to place Subutex taper and orders for as needed medications for symptom management. Patient and parents interested in patient starting Vivitrol going forward, will plan to give 1 dose inpatient and set patient up for outpatient injections going forward. 2. Polysubstance use disorder ? Urine drug screen positive for cannabinoids and benzodiazepines on admission. Case management following as noted above to help with providing resources for patient. 3. History of rhabdomyolysis ? Recent hospitalization from 05/08 to 05/12 for rhabdomyolysis. Presented at that time with significant bilateral leg weakness, worse on the right and was found to have a CPK level of 22,000. Does CrossFit and also played 27 holes of golf the previous day, suspected this was due to activity. Had concomitant DILSHAD and elevated liver enzymes on admission. These all improved with IV fluid resuscitation. Hepatitis panel and HIV screen were nonacute. BMP and LFTs normal in ED on 06/09. DVT prophylaxis: Low risk, ambulate CODE STATUS: Full code, verified Expected disposition: Home, 2 to 3 days Total clinical time spent by myself addressing the patient's medical issues, reviewing all the data, and collaborating with patient's care team: 55 minutes. Charges/Coding Visit Charges Inpatient E&M: 70631 Init Hosp L2
--- NOTE | 2023-06-09 09:46 | NURSING ---
DR RAEGAN FOOTE
--- NOTE | 2023-06-09 09:52 | NURSING ---
MED SURG MOSTELLER OPIATE USE DISORDER
[2023-06-09 10:05] VITALS: RESP 18
--- NOTE | 2023-06-09 10:28 | CM.ED ---
Social Work Referral Source: Case find Referral Reason: LI SORIA met with patient and patient's family and introduced self and role as [facility] SW. Patient agreeable to speak to SW with patient's parents present. SW engaged patient in conversation regarding detox program and expectations. Patient inquired about [facility] staff Sabrina as the patient has talked with her and other [facility] staff didn't know who that was. YANG explained Sabrian is the detox coordinator at [facility] and will be assisting the patient with after care planning. Patient's mother inquiring about being apart of the discharge plan as she wants to support the patient and see the patient go through rehab. YANG explained the detox coordinator will assist with patient with whatever plan he would prefer and can discuss options. Patient agreeable to Sabrina contacting patient's mother. YANG explained Sabrina will likely need to meet with the patient to discuss LONNIE before contacting the patient's mother. YANG also informed patient's mother she can call into [facility] to have periodic updates regarding the patient's care from his care team. YANG provided emotional support. YANG updated Sabrina of patient being admitted as well as conversation with patient's family. Plan: LI BEAVER, JOHN
[2023-06-09 11:27] VITALS: BMI 25.0
[2023-06-09 11:36] VITALS: BP 119/71; PULSE 76; RESP 17; TEMP 36.6; O2SAT 100
[2023-06-09 14:37] LABS: AST(SGOT) 24 U/L (15-37); Alanine Aminotransfer ALT/SGPT 33 U/L (16-61); Albumin, Serum 3.4 g/dL (3.2-5.0); Alkaline Phosphatase 24 U/L (45-117); Bilirubin, Direct 0.12 mg/dL (0.00-0.30); Globulin 3.4 g/dL (2.2-4.2); Protein, Total 6.8 g/dL (6.4-8.2)
[2023-06-09] MEDS: Buprenorphine HCl 2 MG TAB.SUBL SL ×2 (16:36→23:54)
[2023-06-09] MEDS: Ondansetron 8 MG Tablet PO (16:40)
--- NOTE | 2023-06-09 16:50 | CM.ED ---
Social Work SW contacted by patient's mother to inquire about patient's care. Patient's mother reports calling PCU staff earlier and was told they would call her back. Patient's mother voiced feeling anxious regarding residential plan for patient and reached out to [facility] support who instructed patient's mother to get some rest for today. SW engaged in active listening and provided emotional support. SW also encouraged patient's mother to take it one day at a time as thinking too far ahead can be overwhelming. SW explained the detox coordinator was updated regarding patient being admitted and has met with the patient briefly and would be in contact with patient's mother if the patient requested that. Patient's mother voiced understanding and was receptive towards support. SW transferred patient's mother to floor protection officer for update. Shobha BEAVER, JOHN
[2023-06-09 18:14] VITALS: BP 131/73; PULSE 79; RESP 16; TEMP 36.9; O2SAT 98
[2023-06-10 00:10] VITALS: BP 129/89; PULSE 74; RESP 16; TEMP 36.8; O2SAT 100
[2023-06-10 06:10] VITALS: BP 134/71; PULSE 76; RESP 16; TEMP 36.5; O2SAT 100
[2023-06-10 07:42] VITALS: O2SAT 100
[2023-06-10 07:48] VITALS: BP 124/87; PULSE 73; RESP 12; TEMP 36.6
[2023-06-10] MEDS: Buprenorphine HCl 2 MG TAB.SUBL SL ×2 (07:52→16:29)
--- NOTE | 2023-06-10 11:47 | ADDICTION ---
This press writer met with PT to conduct ASAM, MSE, AUDIT assessments and to plan for d/c. PT A+Ox4 and participated actively. All assessments completed and placed in PT's chart. [facility]. PT did not indicate a need for transportation post d/c from [facility].
--- NOTE | 2023-06-10 15:08 | CHAPLAIN ---
Type of Pastoral Visit _x__ Initial Visit ___ Follow-up Visit ___ On-call Visit ___ General Patient Visit ___ Spiritual Assessment ___ Family Conference ___ Bereavement ___ Rapid Response ___ Code Blue ___ Other (describe below) Pastoral Care Referral From _x__ Patient ___ Family ___ Nurse ___ Physician ___ Field Ironworker ___ Sql Tech ___ Other (describe below) Sacrament/Intervention _x__ Active listening ___ Anointing ___ Episcopal ___ Bereavement ___ Communion _x__ Anaya exploration ___ _x__ Life review _x__ Prayer ___ Reconciliation ___ Sacrament of Sick _x__ Supportive presence ___ Wedding ___ Other (describe below) Pastoral Comments patient is alert and able to have discussion; pt is very open about his situation with drugs and desire to get off the drugs; pt acknowledged that he had to inform his parents so he could have help; pt expresses relief that they are involved and helping him; pt gives some life review and speaks of his ideas on overcoming addiction; pt states good resources, job, and family along with plans to follow up with [facility]; talk about God and how He plays into his support, the patient acknowledges that he has been reluctant but interested in spirituality and anaya development; pt asks questions about anaya issues; pt welcomes visit and prayers for his support; pt expresses thanks for the help;
--- NOTE | 2023-06-10 15:47 | PCM.PN.HOSP ---
Reason for Visit Reason for Visit: Diagnoses Opioid abuse, uncomplicated (06/09/23) Subjective Subjective Patient seen at bedside this afternoon. Laying comfortably in bed, conversing normally, no acute distress. Patient states that his withdrawal symptoms have been very well controlled with Subutex taper. Has not required any other medications for withdrawal symptoms. Denies any other concerns today. Objective Data Objective Data Vital Signs: Vital Signs Temp Pulse Resp BP Pulse Ox O2 Del Method 98 F 73 12 124/87 H 100 Room Air 06/10/23 07:48 06/10/23 07:48 06/10/23 07:48 06/10/23 07:48 06/10/23 07:42 06/10/23 07:48 Oxygen Delivery Method Room Air Weight: 79.1 kg Body Mass Index (BMI) 25.0 Intake & Output: Intake and Output for Last 24 Hours 06/08/23 06/09/23 06/10/23 23:59 23:59 23:59 Intake Total 520 / 520 400 / 400 Balance 520 / 520 400 / 400 Lab / Micro Data 06/09/23 08:55 06/09/23 08:55 Physical Exam Const alert, oriented x3, no apparent distress and average body habitus Constitutional Narrative: Pleasant younger male, laying ultimately bed, conversing normally, no acute distress. General Appearance: cooperative and comfortable HEENT normocephalic, head/scalp atraumatic, hearing grossly normal bilaterally, nasal mucous membranes and turbinates normal and moist oral mucous membranes Eyes PERRL, EOMs intact bilaterally and conjunctivae normal Neck full ROM, no lymphadenopathy and supple Lymph Lymphatic: no lymphadenopathy noted Chest inspection of chest normal Resp normal respiratory effort, normal air movement, no use of accessory muscles and clear to auscultation bilaterally Cardio regular rate, regular rhythm, no murmurs and peripheral pulses 2+ throughout GI normal to inspection, nondistended, normoactive bowel sounds, soft to palpation, non-tender and non-distended Back/Spine normal ROM Extremity normal to inspection, full ROM and no pedal edema Skin no rashes or lesions noted Psych mental status grossly normal Assessment & Plan Assessment/Plan (1) Opiate abuse, continuous: PLAN: Plan Patient is a 28-year-old male with history of opiate use disorder, recent history of rhabdomyolysis who presented to [facility] ED on 06/09/2023 for opiate detoxification. 1. Opiate use disorder Patient reports using intranasal fentanyl, as well as pills laced with fentanyl. Last use was on Wednesday evening. Patient has gone to treatment facilities for detoxification in the past. Has p.o. naltrexone daily on home medication list but has not been taking this. Has also been on Suboxone in the past with good relief of opiate withdrawal symptoms. ? Patient tolerating Subutex taper well, has had low COWS scores. Case management and addiction medicine following. Planning to establish with [facility] for follow-up outpatient treatment services on discharge. If remains stable, plan for discharge tomorrow. 2. Polysubstance use disorder ? Urine drug screen positive for cannabinoids and benzodiazepines on admission. Case management following as noted above to help with providing resources for patient. 3. History of rhabdomyolysis ? Recent hospitalization from 05/08 to 05/12 for rhabdomyolysis. Presented at that time with significant bilateral leg weakness, worse on the right and was found to have a CPK level of 22,000. Does CrossFit and also played 27 holes of golf the previous day, suspected this was due to activity. Had concomitant DILSHAD and elevated liver enzymes on admission. These all improved with IV fluid resuscitation. Hepatitis panel and HIV screen were nonacute. BMP and LFTs normal in ED on 06/09. DVT prophylaxis: Low risk, ambulate CODE STATUS: Full code, verified Expected disposition: Home, tomorrow Total clinical time spent by myself addressing the patient's medical issues, reviewing all the data, and collaborating with patient's care team: 25 minutes. Charges/Coding Visit Charges Inpatient E&M: 89235 [facility] Hosp L1
[2023-06-10 16:12] VITALS: BP 130/75; PULSE 14; RESP 16; TEMP 36.6; O2SAT 100
[2023-06-10 22:00] VITALS: BP 128/77; PULSE 74; RESP 16; TEMP 36.4; O2SAT 100
[2023-06-11 03:58] VITALS: BP 105/73; PULSE 80; RESP 16; TEMP 36.4; O2SAT 99
[2023-06-11 07:17] VITALS: O2SAT 99
[2023-06-11 07:56] VITALS: BP 110/78; PULSE 67; RESP 14; TEMP 36.6
[2023-06-11] MEDS: Buprenorphine HCl 2 MG TAB.SUBL SL ×2 (07:59)
--- NOTE | 2023-06-11 12:16 | DCINST_ITS ---
Discharge Instructions Diet Discharge Diet: No restrictions Activity Discharge Activity: Return to Normal Activity Weight Bearing Status: Full weight bearing Follow Up Care Please Follow Up With: Vernon Garcia MD When: As needed Test Results: Test results from this visit will be discussed in further detail at your follow- up appointment, if applicable. Pending Tests Upon Discharge: None Discharge Plan Admission Admit Date/Time: 06/09/23 09:47 Primary Reason for Your Visit: Opiate detoxification Attending Provider: Joe Bird Primary Care Provider: Vernon Garcia Instructions Additional Instructions / Restrictions: Please go to [facility] on discharge as a walk-in as discussed during admission. Follow-up with your primary care doctor as needed. Discharge Orders/Prescriptions Prescriptions: Discontinued naltrexone .Route naltrexone 50 mg tablet 50 mg PO Q24H Patient Comments: TAKE 1 TABLET BY MOUTH EVERY DAY quetiapine [Seroquel] 50 mg tablet 50 mg PO .PRN qhs Hold Instructions: no refills clonazepam [Klonopin] 1 mg tablet 1 mg PO .prn qhs Hold Instructions: no refills Rx Instructions: administer 30 minutes before bedtime Referrals / Follow Up: Vernon Garcia MD [Primary Care Provider] - Disposition Disposition (needs filled in before D/C Order can be placed): Home, Self Care
--- NOTE | 2023-06-11 12:20 | PCM.DC.SUM ---
Providers Date of Admission: 06/09/23 Date of Discharge: 06/11/23 Primary Care Physician: Vernon Garcia MD Reason For Visit: OPIATE DETOX Diagnosis Discharge Diagnosis (1) Opiate abuse, continuous: Status: Acute Code(s): F11.10 - Opioid abuse, uncomplicated Hospital Course Operations None Procedures None Summary of Care Provided Minutes Spent on Discharge: 23 Hospital Course: Patient is a 28-year-old male with history of opiate use disorder, recent history of rhabdomyolysis who presented to [facility] ED on 06/09/2023 for opiate detoxification. Short hospital course with medical concerns addressed as below. Opiate use disorder: Patient reports using intranasal fentanyl, as well as pills laced with fentanyl. Last use was on Wednesday evening. Patient has gone to treatment facilities for detoxification in the past. Has p.o. naltrexone daily on home medication list but has not been taking this. Has also been on Suboxone in the past with good relief of opiate withdrawal symptoms. Patient tolerated Subutex taper well while inpatient. Case management and addiction medicine followed. Patient planning to establish with [facility] for follow-up outpatient treatment services on discharge. Discharged home in stable condition. Discharge diagnoses: ? Opiate use disorder ? Polysubstance use disorder Total clinical time spent by myself addressing the patient's discharge needs: 23 minutes. Physical Exam Const alert, oriented x3, no apparent distress and average body habitus Constitutional Narrative: Pleasant younger male, laying ultimately bed, conversing normally, no acute distress. General Appearance: cooperative and comfortable HEENT normocephalic, head/scalp atraumatic, hearing grossly normal bilaterally, nasal mucous membranes and turbinates normal and moist oral mucous membranes Eyes PERRL, EOMs intact bilaterally and conjunctivae normal Neck full ROM, no lymphadenopathy and supple Lymph Lymphatic: no lymphadenopathy noted Chest inspection of chest normal Resp normal respiratory effort, normal air movement, no use of accessory muscles and clear to auscultation bilaterally Cardio regular rate, regular rhythm, no murmurs and peripheral pulses 2+ throughout GI normal to inspection, nondistended, normoactive bowel sounds, soft to palpation, non-tender and non-distended Back/Spine normal ROM Extremity normal to inspection, full ROM and no pedal edema Skin no rashes or lesions noted Psych mental status grossly normal Weight / BMI Weight Weight: 79.1 kg Body Mass Index (BMI) 25.0 ABG / Lab / Microbiology Data 06/09/23 08:55 06/09/23 08:55 D/C Instructions Discharge Diet: No restrictions Weight Bearing Status: Full weight bearing Pending Tests Upon Discharge: None Please Follow Up With: Vernon Garcia MD When: As needed Meaningful Use Info Meaningful Use Diagnoses (Choose all that apply): None applicable Discharge Plan Admission Admit Date/Time: 06/09/23 09:47 Primary Reason for Your Visit: Opiate detoxification Attending Provider: Joe Bird Primary Care Provider: Vernon Garcia Instructions Additional Instructions / Restrictions: Please go to [facility] on discharge as a walk-in as discussed during admission. Follow-up with your primary care doctor as needed. Discharge Orders/Prescriptions Prescriptions: Discontinued naltrexone .Route naltrexone 50 mg tablet 50 mg PO Q24H Patient Comments: TAKE 1 TABLET BY MOUTH EVERY DAY quetiapine [Seroquel] 50 mg tablet 50 mg PO .PRN qhs Hold Instructions: no refills clonazepam [Klonopin] 1 mg tablet 1 mg PO .prn qhs Hold Instructions: no refills Rx Instructions: administer 30 minutes before bedtime Referrals / Follow Up: Vernon Garcia MD [Primary Care Provider] - Disposition Disposition (needs filled in before D/C Order can be placed): Home, Self Care Charges/Coding Visit Charges Inpatient E&M: 64500 Disch Hosp
== END 2023-06-11 14:13 | disposition home or self-care (01) | DRG 897 ==
LOC: ED 08:43 → PCU 10:25
PROVIDERS: Admitting Provider Hospitalist; Emergency Provider Emergency Medicine; PCP Family Medicine; Visit Provider Hospitalist
DX: F11.10 Opioid abuse, uncomplicated (principal); F12.90 Cannabis use, unspecified, uncomplicated; Z79.899 Other long term (current) drug therapy
CPT/HCPCS: 36415; 80048; 80076; 80307; 82077; 85025; 93005; 99283